=== PATIENT | female | born 1935 | race Caucasian/White ===

== ENCOUNTER → 2016-06-15 | Outpatient (CLI) | payer OTHER ==
--- NOTE | 2016-06-15 16:26 | DX ---
Chest, Two Views - June 15, 2016, at 1241 hours History: Cough, history of renal cell carcinoma. Comparison: Outside CT of August 2015. Findings: Cardiac silhouette is within normal range. No pneumonia, congestive heart failure, pleura l effusion, or pneumothorax. Large hiatal hernia. Atherosclerotic aorta. No definite pulmonary nodule . Impression: 1. Large hiatal hernia. 2. No pneumonia. 3. No definite pulmonary nodules. 4. Consider CT chest imaging if clinically indicated.
== END ==
LOC: BMCIMAGING 12:44
PROVIDERS: ATTEND Physician Assistant Medical
DX: K44.9 Diaphragmatic hernia without obstruction or gangrene (principal); R05 Cough; Z85.528 Personal history of other malignant neoplasm of kidney

== ENCOUNTER 2016-06-29 08:20 | Inpatient (IN) | payer OTHER ==
[2016-06-29] MEDS ORDERED: ACETAMINOPHEN 325 MG TAB PO PRN (10:55)
[2016-06-29] MEDS ORDERED: ZOLPIDEM TARTRATE 5 MG TAB PO PRN (10:55)
--- NOTE | 2016-06-29 10:59 | PDGENHP ---
History and Physical History and Physical: HISTORY AND PHYSICAL ADMISSION NOTE CC: Nausea, lightheadedness, unable to eat and drink HISTORY: this patient's history is difficult as her memory is not complete. She is referred here from Dr. Ayala's office because of difficulty with nausea, dizziness, and not eating well for at least several days with poor fluid intake as well. It is hard for me to clarify really what the timing is in terms of onset of this illness. Going back it sounds like she had an illness that was at least similar to bronchitis somewhere near [facility] and she was treated for that. The symptoms of chest cough and chest tightness have disappeared but she has persistent nasal sinus and ear congestion since then. She says that she has had intermittently some dizziness which she describes as a lightheadedness with nausea but no vertigo, brought on by various head movements. I cannot tell if this symptom has been present ever since but it sounds like it may possibly have been. The patient was then seen sometime around [place] time at the urgent care and reports to me that she was treated for both itching and 1 other symptom which she cannot recall. She says she was given 2 medicines 1 of which she says was causing her to have diarrhea. She does not really recall which medicines those were but states she is not having diarrhea at this time. Subsequently she was seen June 15 by what sounds like an Ear Nose Throat practitioner because of difficulty hearing in the right ear with history of tubes. She says she had her ears somehow irrigated and has been hearing better since then. She denies having had ear pain before or after that. She cannot recall whether there was any nausea or vertigo on June 15 and if it was present whether it got any better with her ear treatment. At this point she complains that for for 5 days he is really not been able to eat or drink well at all due to significant nausea. Again this nausea she says is also aggravated by head movement and position changes, and is associated with a lightheaded dizziness but not vertigo , ear pain, decreased hearing, headache, change in vision or double vision, stroke-like symptoms. She does feel dehydrated. She also does feel lightheaded enough with walking that she is concerned about falling but has not fallen and does not notice any incoordination per se ROS: COPD is chronic and stable and she has no more dyspnea than usual. Otherwise 10 system review is unrevealing at this point. 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 Last CT scan August of this year without evidence of cancer No heart disease FAMILY MEDICAL HISTORY: SOCIAL HISTORY: No tobacco or alcohol use MEDICATIONS: PHYSICAL EXAMINATION: Vital Signs: Normal without fever Examination: General: alert, oriented, memory is definitely impaired but otherwise has good mentation, relaxed Neurologic: normal speech/language, normal service support representative, no focal weakness Skin: warm, dry, pale in color, no rash or other concerning lesions HEENT: normal Neck: no mass or jvd, no carotid bruits and the carotid pulses are palpable Resps: relaxed Lungs: clear breath sounds Heart: regular, no murmur Abdomen: soft, nondistended, nontender, +BS, no mass Upper Extremities: normal Lower Extremities: no edema, warm; pulses are severely diminished and barely palpable at both feet No Bleeding or bruising IV site: looks normal LABORATORY DATA: In the outpatient setting on June 15 she had CBC and complete metabolic panel with TSH all of which were unremarkable RADIOLOGY STUDIES: Chest x-ray June 15, my personal review of image interpretation: Evidence of COPD, with no heart failure, effusions, masses, or pulmonary infiltrates In August 2015 she had a review of [address] scan abdomen is by our radiologist Dr. Cagle. His interpretation was that there was no evidence of current malignancy but that there was a hiatal hernia which was previously noted. ASSESSMENT: DIAGNOSES: # dehydration with orthostatic symptoms # nausea with anorexia, etiology uncertain # ongoing nasal sinus and ear congestion # history of transitional cell cancer of the right renal pelvis, currently appears in remission with follow up with Dr. Skinner I will need to get outside records to get more detail about what her symptoms truly were as she presented for her visits at [facility] and on June 15 , and what medications she was prescribed at those times. I suspect that she may have some middle ear related dizziness and nausea, however she truly does not have vertigo by history or examination. Certainly at this point she is dehydrated and this is aggravating her symptoms of dizzy and lightheadedness. The ongoing congestion of upper airways may be post viral or have other etiology. She does not have headache, of nystagmus or other abnormal vestibular ocular reflex's, nor cranial nerve findings to suggest a brain mass or other brain lesion focally. However her poor memory does make review of her symptoms difficult and I would keep an open mind with a broad differential diagnosis. It may be that we can eliminate a lot of her symptoms at this time with simple hydration but if this is not effective may need to do more detailed diagnostic evaluation. PLANS: -admission to hospital, inpatient as I do not think she will be safe on her feet to go home within 48 hours -Begin with IV hydration after checking orthostatic vital signs and recheck those after hydration along with review of her symptoms -Recheck CBC and basic metabolic panel at this time -consider other diagnostic measures including brain imaging as indicated as we go along I have reviewed the patient's past medical records as part of this assessment, including Outside imaging and laboratory data. I also reviewed her [facility] record to see if the [facility] records were available but the clinic notes are not available for review there I will have to get them from [facility].
[2016-06-29 11:54] LABS: % IMMATURE GRANULYOCYTES 0.3 % (0.0-1.1); ABSOLUTE IMMATURE GRANULOCYTES 0.02 10^3/uL (0.00-0.10); ADD DIFF? NO; ADD MORPH? NO; ADD SCAN? NO; ATYPICAL LYMPHOCYTE FLAG 0 (0-99); FRAGMENT RBC FLAG 0 (0-99); HEMATOCRIT 46.3 % (38.0-47.0); HEMOGLOBIN 16.3 g/dL (12.6-16.3); LEFT SHIFT FLG 0 (0-99); LIPEMIA HEMOLYSIS FLAG 90 (0-99); MEAN CELL HEMOGLOBIN 29.6 pg (27.9-34.1); MEAN CELL HEMOGLOBIN CONCENTR. 35.2 g/dL (32.4-36.7); MEAN PLATELET VOLUME 11.3 fL (8.7-11.7); PLATELET CLUMPS FLAG 0 (0-99); PLATELET COUNT 261 10^3/uL (150-400); RED BLOOD CELL COUNT 5.51 10^6/uL (4.18-5.33); RED CELL DISTRIBUTION WIDTH 13.2 % (11.5-15.2)
[2016-06-29] MEDS: NS 1,000 ML IV SCH ×2 (12:02→22:25)
[2016-06-29 12:05] LABS: ALANINE AMINOTRANSFERASE 39 IU/L (9-52); ALBUMIN 4.1 g/dL (3.5-5.0); ALKALINE PHOSPHATASE 39 IU/L (38-126); ANION GAP 11 mEq/L (8-16); ASPARTATE AMINOTRANSFERASE 30 IU/L (14-46); CALCIUM 9.2 mg/dL (8.5-10.4); CARBON DIOXIDE 22 mEq/l (22-31); CHLORIDE 98 mEq/L (97-110); CREATININE 0.8 mg/dL (0.6-1.0); GLOMERULAR FILTRATION RATE > 60; GLUCOSE 122 mg/dL (70-100); MAGNESIUM 2.1 mg/dL (1.6-2.3); SODIUM 131 mEq/L (134-144); TOTAL PROTEIN 7.2 g/dL (6.3-8.2)
[2016-06-29] MEDS: ONDANSETRON 4 MG/2 ML VIAL IVP PRN ×2 (12:12→16:32)
[2016-06-29] MEDS ORDERED: FAMOTIDINE 20 MG/NACL 50 ML IV ONE (16:44)
[2016-06-29] MEDS ORDERED: methylPREDNISolone SOD SUCC 125 MG/2 ML VIAL IVP ONE (16:44)
[2016-06-29 17:11] LABS: COLOR YELLOW; LEUKOCYTE ESTERASE,URINE TRACE (NEGATIVE); NITRITE,URINE NEGATIVE (NEGATIVE)
[2016-06-29 17:23] LABS: MUCUS TRACE /lpf (NONE-1+)
[2016-06-30 04:45] LABS: ANION GAP 10 mEq/L (8-16); CALCIUM 8.2 mg/dL (8.5-10.4); CARBON DIOXIDE 19 mEq/l (22-31); CHLORIDE 106 mEq/L (97-110); CREATININE 0.8 mg/dL (0.6-1.0); GLOMERULAR FILTRATION RATE > 60; GLUCOSE 157 mg/dL (70-100); POTASSIUM 4.7 mEq/L (3.5-5.2); SODIUM 135 mEq/L (134-144)
[2016-06-30] MEDS: ENOXAPARIN 40 MG/0.4 ML SYR SC SCH ×2 (08:39→09:23)
[2016-06-30] MEDS: ONDANSETRON 4 MG/2 ML VIAL IVP PRN ×2 (08:39→08:51)
[2016-06-30] MEDS: ATORVASTATIN CALCIUM 40 MG TAB PO SCH (08:39)
[2016-06-30] MEDS: Tiotropium Br/Olodaterol Hcl [Stiolto Respimat Inhal Spray] IH SCH (09:34)
[2016-06-30] MEDS ORDERED: methylPREDNISolone SOD SUCC 125 MG/2 ML VIAL IVP ONE (11:30)
[2016-06-30] MEDS ORDERED: FAMOTIDINE 20 MG/NACL 50 ML IV ONE (11:30)
[2016-06-30] MEDS: FLUTICASONE NASAL 120 SPRAYS/16 GM MDI EACHNARE SCH (12:56)
[2016-06-30] MEDS ORDERED: IOPAMIDOL (ISOVUE-300) 100 ML BTL IV ONE (13:13)
--- NOTE | 2016-06-30 14:33 | CT ---
CT Scan of the Abdomen and Pelvis (With Contrast) 1351 hours History: Abdominal pain and anorexia. Reflux symptoms. History of kidney mass Technique: Axial computed tomographic images of the abdomen and pelvis were obtained with the unevent ful intravenous administration of 75 mL Isovue-300 contrast. Oral contrast was also administered. Joan ges were reviewed in multiple planes. Dose reduction techniques were utilized. CT Abdomen and Pelvis Findings: Comparison to prior CT study of September 02, 2015. Bowel Loops: Large hiatal hernia is once again identified. There is normal contrast opacification of bowel loops. There is no evidence of dilatation or obstruction. Uncomplicated diverticula are once a gain seen associated with the sigmoid colon Lung bases: There are some fibrotic bands of subsegmental atelectasis at the left lung base as well a s a few bands of subsegmental atelectasis at the right lung base posteriorly. Liver: There is a stable 14 x 8 mm cyst right lobe liver near the dome posterolaterally as well as a few scattered subcentimeter cysts in the right lobe liver stable in appearance. Spleen: Normal. Gallbladder and Bile Ducts: Normal. Pancreas: Normal. Adrenals: Normal. Kidneys: No obstruction or solid masses. No evidence of renal calculus or ureteral calculus Abdominal Aorta: No aneurysm. Moderate atherosclerotic calcification is noted of the abdominal aorta and pelvic branches. Pelvic structures: The patient has had a previous hysterectomy. There is a septated cyst associated w ith the left ovary similar to the prior study measuring 2.8 x 1.6 cm on series 4 image 177. This is a slightly different orientation on today's study. No additional adnexal mass is seen Bladder: Normal. Appendix: Nonvisualized. No bowel obstruction, ascites, or significant retroperitoneal lymphadenopathy. Skeletal system: Vertebral body heights are well-maintained. There are no significant lytic or scler otic osseous lesions. Marked degenerative disk disease is noted at L3-L4 with vacuum phenomena and en dplate sclerosis more prominent toward the right with associated mild levoscoliosis. There is mild to moderate disk bulge along with facet hypertrophy and ligamentum flavum hypertrophy contributes to mo derate spinal stenosis. Impression: 1. Large hiatal hernia. 2. Uncomplicated diverticulosis of the sigmoid colon. 3. Stable cysts within the liver. 4. Septated cyst suspected along the left pelvic sidewall associated with the left ovary similar to t he prior study. If indicated, consider pelvic ultrasound follow-up in 1 year has clinically directed.
--- NOTE | 2016-06-30 15:44 | HOSPPROG ---
Hospitalist Progress Note Assessment/Plan: DIAGNOSIS: # dehydration with orthostatic symptoms # nausea with anorexia, etiology uncertain # ongoing nasal sinus and ear congestion # gait instability # hx of CAD, COPD, Ao Stenosis, colon polyps # history of transitional cell cancer of the right renal pelvis, currently appears in remission with follow up with Dr. Skinner Overall she seems to be improving in that she is eating better and is less orthostatic but still is having symptoms. CT scan was unrevealing and laboratory workup so far fairly unrevealing. It is possible that this is a combination of dehydration along with either a viral illness or similar cause. However if she does not continue to resolve these symptoms and recovered back to her baseline we may need to consider upper endoscopy to look for other possible etiologies. PLANS: -continue IV hydration -Continue diet as tolerated -Continue physical occupational therapy -trial of decongestant to see if this helps her symptoms of congestion out, but will need to watch blood pressures very closely -Continue SUBJECTIVE: She is feeling better overall. She is eating significantly better, not quite at her usual intake. There is still some mild intermittent nausea is well controlled by Zofran so far. She is less orthostatic symptomatically New the the last overall she is well she she is for some improvement in her chest and her abdomen does all the significant side so hard symptoms because yesterday the clock so I did get the question her were steroids significant IV fair but it seems like she feels somewhat better go to the so it seems like we continued the 1 question the JENNIFER from our pharmacist the could not find any information this debility next been, the how long last and they were least from here from [place] in the pharmacist were concerned that okay here in the hospital we can make that day sent back to at how she makes out on the I am health agency radiate ago with a different I think we certainly could not be in no there is no abnormality vital signs are vital organ function putting her on any kind and it seems so far like she is tolerating well with reasonably good see so I think continues to do well she should be able but I wanted I had numerous recalling what it was in part due to headache again go over your thoughts in January from pharmacist pharmacist see progression to OBJECTIVE Vitals reviewed: stable without fever somewhat less orthostatic by numbers of the Exam: alert oriented skin warm dry color ok resps not labored lungs clear BSs heart regular abd soft nondistended nontender, bowel sounds present limbs warm, no edema iv site ok CT scan of abdomen pelvis with contrast, my review of images and interpretation : Hiatal hernia is present which is a known diagnosis. She does have stable hepatic and pelvic cysts but no other specific abnormalities that I can see. The same cysts are noted by the radiologist. Follow up the imaging is again it suggested by the radiologist. Laboratory data: CBC is unremarkable Chemistry showing electrolytes okay, renal function good, liver enzymes and bilirubin good, TSH normal. The glucoses are slightly elevated Objective: Vital Signs Temp Pulse Resp BP Pulse Ox 36.6 C 65 18 131/69 H 93 06/30/16 08:30 06/30/16 10:08 06/30/16 08:30 06/30/16 10:08 06/30/16 08:30 Laboratory Results 06/29/16 11:40 06/30/16 03:53 06/29/16 06/30/16 07/01/16 06:59 06:59 06:59 Intake Total 3576 Output Total 1450 1550 Balance 2126 -1550 ICD10 Worksheet Patient Problems: Problems Problem Status Diagnosed Abdominal pain in female Acute - ICD10 Problem Qualifiers (1) Abdominal pain in female
[2016-06-30] MEDS: NS 1,000 ML IV SCH ×2 (19:34→23:27)
[2016-07-01] MEDS: ENOXAPARIN 40 MG/0.4 ML SYR SC SCH ×2 (07:30→07:34)
[2016-07-01] MEDS: ONDANSETRON 4 MG/2 ML VIAL IVP PRN ×3 (07:30→19:40)
[2016-07-01] MEDS: ATORVASTATIN CALCIUM 40 MG TAB PO SCH (07:30)
[2016-07-01] MEDS: FLUTICASONE NASAL 120 SPRAYS/16 GM MDI EACHNARE SCH (07:31)
[2016-07-01] MEDS: Tiotropium Br/Olodaterol Hcl [Stiolto Respimat Inhal Spray] IH SCH (07:31)
--- NOTE | 2016-07-01 15:19 | HOSPPROG ---
Hospitalist Progress Note Assessment/Plan: 72 year female sent from her primary care physician's office, Nanda Mccartney, secondary to inability to eat. This is my 1st encounter with the patient, chart reviewed. Patient discussed with Dr. Minor Reyes. # dehydration with orthostatic symptoms Continue IV supportive care Patient dehydrated upon admission # nausea with anorexia, etiology uncertain CT scan of the abdomen shows large hiatal hernia Consider surgical intervention Likely causes of patient's symptoms Patient does not want surgical consultation at this time readdress in the morning # ongoing nasal sinus and ear congestion Appears stable Continue supportive care No acute infectious process identified # gait instability Continue PT OT # hx of CAD, COPD, Ao Stenosis, colon polyps # history of transitional cell cancer of the right renal pelvis, currently appears in remission with follow up with Dr. Skinner Overall she seems to be improving. She is eating better and is less orthostatic but still is having symptoms. CT scan was unrevealing and laboratory workup so far fairly unrevealing. It is possible that this is a combination of dehydration along with either a viral illness or similar cause. However if she does not continue to resolve these symptoms and recovered back to her baseline we may need to consider upper endoscopy to look for other possible etiologies. PLANS: -continue IV hydration -Continue diet as tolerated -Continue physical occupational therapy -trial of decongestant to see if this helps her symptoms of congestion out, but will need to watch blood pressures very closely Subjective: Feeling better today. Still having some difficulty eating. Still having mild abdominal discomfort. Objective: Vital Signs Temp Pulse Resp BP Pulse Ox 36.6 C 63 20 132/66 H 95 07/01/16 07:24 07/01/16 09:06 07/01/16 07:24 07/01/16 09:06 07/01/16 07:24 Laboratory Results 06/29/16 11:40 06/30/16 03:53 06/30/16 07/01/16 07/02/16 05:59 05:59 05:59 Intake Total 1534 2042 Output Total 1450 2200 Balance 84 -158 - Physical Exam Constitutional: no apparent distress, appears nourished, not in pain Eyes: PERRL, anicteric sclera, EOMI Ears, Nose, Mouth, Throat: moist mucous membranes, hearing normal, ears appear normal Cardiovascular: regular rate and rhythym, No JVD, No edema Respiratory: no respiratory distress, no rales or rhonchi, reduced air movement Gastrointestinal: normoactive bowel sounds, No tenderness, No ascites Skin: warm, normal color, No erythema Musculoskeletal: no joint effusions, abnormal gait, generalized weakness Psychiatric: not anxious, not encephalopathic, poor insight, poor judgement, poor memory ICD10 Worksheet Patient Problems: Problems Problem Status Diagnosed Abdominal pain in female Acute
[2016-07-02] MEDS: ONDANSETRON 4 MG/2 ML VIAL IVP PRN ×4 (00:10→17:35)
[2016-07-02] MEDS: NS 1,000 ML IV SCH (06:11)
[2016-07-02] MEDS: Tiotropium Br/Olodaterol Hcl [Stiolto Respimat Inhal Spray] IH SCH (08:17)
[2016-07-02] MEDS: ENOXAPARIN 40 MG/0.4 ML SYR SC SCH (08:31)
[2016-07-02] MEDS: ATORVASTATIN CALCIUM 40 MG TAB PO SCH (08:31)
--- NOTE | 2016-07-02 09:08 | HOSPPROG ---
Hospitalist Progress Note Assessment/Plan: 72 year female sent from her primary care physician's office, Nanda Mccartney, secondary to inability to eat. This is my 1st encounter with the patient, chart reviewed. # dehydration intially, had orthostasis vital signs stable # nausea with associated anorexia * she has a large hiatal hernia with symptoms of GERD * place her on a PPI twice daily and see how she does * could consider a barium swallow or get a GI consult. Patient said she would be willing to do an upper endoscopy if symptoms are not improved by tomorrow # ear congestion * patient recently saw her physician/courtesy clerk for this * she has a tube in the right ear that was taken out cleaned and replaced * she does not have her hearing aids available suspect this is why she may feel she has congestion in her year # gait instability * PT and OT are recommending home care # history of coronary artery disease * also has aortic stenosis * no complaints of chest pain # history of transitional cell cancer of the right renal pelvis CT scan shows this will have her follow up with Dr. Skinner in the outpatient setting # plan. Will do a trial of a PPI twice daily if she is not much improved we will ask GI to further evaluate her. Subjective: Silvia was able to eat breakfast but has persistent nausea requiring Zofran Objective: Vital Signs Temp Pulse Resp BP Pulse Ox 36.5 C 70 18 137/78 H 93 07/02/16 07:28 07/02/16 07:28 07/02/16 07:28 07/02/16 07:28 07/02/16 07:28 Laboratory Results 06/29/16 11:40 06/30/16 03:53 07/01/16 07/02/16 07/03/16 05:59 05:59 05:59 Intake Total 2 300 Output Total 2200 Balance -158 300 - Physical Exam Constitutional: no apparent distress, appears nourished, not in pain Eyes: PERRL Ears, Nose, Mouth, Throat: hearing normal Cardiovascular: regular rate and rhythym, systolic murmur Respiratory: no respiratory distress Gastrointestinal: normoactive bowel sounds, soft, non-tender abdomen Skin: warm Musculoskeletal: full muscle strength Neurologic: AAOx3 Psychiatric: interacting appropriately, not anxious ICD10 Worksheet Patient Problems: Problems Problem Status Diagnosed Abdominal pain in female Acute
[2016-07-02] MEDS: FLUTICASONE NASAL 120 SPRAYS/16 GM MDI EACHNARE SCH (10:03)
[2016-07-02] MEDS: PANTOPRAZOLE SODIUM 40 MG TAB PO SCH ×2 (11:01→20:41)
[2016-07-03] MEDS: ONDANSETRON 4 MG/2 ML VIAL IVP PRN ×5 (00:25→22:54)
[2016-07-03] MEDS: ATORVASTATIN CALCIUM 40 MG TAB PO SCH (08:08)
[2016-07-03] MEDS: PANTOPRAZOLE SODIUM 40 MG TAB PO SCH ×2 (08:08→20:19)
[2016-07-03] MEDS: ENOXAPARIN 40 MG/0.4 ML SYR SC SCH (08:09)
[2016-07-03] MEDS: FLUTICASONE NASAL 120 SPRAYS/16 GM MDI EACHNARE SCH (08:10)
[2016-07-03] MEDS: Tiotropium Br/Olodaterol Hcl [Stiolto Respimat Inhal Spray] IH SCH (09:10)
--- NOTE | 2016-07-03 09:34 | HOSPPROG ---
Hospitalist Progress Note Assessment/Plan: 72 year female sent from her primary care physician's office, Nanda Mccartney, secondary to inability to eat. # dehydration intially, had orthostasis vital signs stable # nausea with associated anorexia * she has a large hiatal hernia with symptoms of GERD * place her on a PPI twice daily * will get a GI consult. Patient said she would be willing to do an EGD/ made her NPO * Dr Yoon to see later today * blood test notes she has H pylori/ ? if she may have an ulcer/ will need treatment (concerned she may not be able to tolerate abx due to persistent nausea) # ear congestion * patient recently saw her physician/ferry pilot for this * she has a tube in the right ear that was taken out cleaned and replaced * she does not have her hearing aids available suspect this is why she may feel she has congestion in her year # gait instability * PT and OT are seeing * can go to [facility] # history of coronary artery disease * also has aortic stenosis * no complaints of chest pain # history of transitional cell cancer of the right renal pelvis CT scan shows this will have her follow up with Dr. Skinner in the outpatient setting # plan. npo, ask GI to see/ her nausea is new and not resolving, difficulty w eating Subjective: Silvia is feeling poorly this morning. Continues to have ongoing nausea. Objective: Vital Signs Temp Pulse Resp BP Pulse Ox 36.9 C 65 15 157/81 H 95 07/03/16 07:50 07/03/16 07:50 07/03/16 07:50 07/03/16 07:50 07/03/16 07:50 Laboratory Results 06/29/16 11:40 06/30/16 03:53 07/02/16 07/03/16 07/04/16 05:59 05:59 05:59 Intake Total 300 500 Output Total 2200 Balance 300 -1700 - Physical Exam Constitutional: uncomfortable Eyes: PERRL Ears, Nose, Mouth, Throat: hearing normal Cardiovascular: regular rate and rhythym Respiratory: no respiratory distress Gastrointestinal: normoactive bowel sounds, soft, non-tender abdomen Skin: warm Musculoskeletal: no muscle tenderness, generalized weakness Neurologic: AAOx3 Psychiatric: interacting appropriately, not anxious ICD10 Worksheet Patient Problems: Problems Problem Status Diagnosed Abdominal pain in female Acute
[2016-07-03] MEDS: NS 1,000 ML IV SCH (13:57)
[2016-07-03] MEDS ORDERED: MIDAZOLAM 2 MG/2 ML VIAL ONE (17:33)
[2016-07-03] MEDS ORDERED: PROPOFOL/EMULSION 500 MG/50 ML BOTTLE IV ONE (17:41)
[2016-07-03] MEDS ORDERED: LIDOCAINE 2% 5 ML SDV ONE (17:42)
[2016-07-03] MEDS ORDERED: fentaNYL 100 MCG/2 ML INJ ONE (17:45)
--- NOTE | 2016-07-03 17:57 | SOAPPROG ---
SOAP Progress Note Assessment/Plan: Assessment:EGD requested for persistent nausea reveals 10 cm hiatal hernia, no PUD or obstruction. CLOtest taken. Plan:Recommend continue on PPIs and observe for improvement. 07/03/16 17:56 Objective: Vital Signs Temp Pulse Resp BP Pulse Ox 36.9 C 70 14 136/68 H 93 07/03/16 15:48 07/03/16 15:48 07/03/16 15:48 07/03/16 15:48 07/03/16 15:48 Laboratory Results 06/29/16 11:40 06/30/16 03:53 07/02/16 07/03/16 07/04/16 05:59 05:59 05:59 Intake Total 300 500 400 Output Total 2200 700 Balance 300 -1700 -300 ICD10 Worksheet Patient Problems: Problems Problem Status Diagnosed Abdominal pain in female Acute
[2016-07-04] MEDS ORDERED: PROMETHAZINE HCL 25 MG/ML INJ IVP PRN (00:36)
--- NOTE | 2016-07-04 01:16 | GPN ---
[f rep st] PROCEDURE NOTE PROCEDURE PERFORMED: Gastroscopy, biopsies. INDICATIONS: The patient is a 80-year-old female who was admitted with several weeks of nausea. No abdominal pain. She has not improved with conservative care in the hospital, and endoscopy is being performed to evaluate. PROCEDURE: After proper consent was obtained, patient placed in the left lateral decubitus position, received IV general anesthesia due to ASA class of 2. Video gastroscope was introduced through the mouth, down the esophagus, into the stomach, past the py lorus, into the duodenal. FINDINGS: 1. Esophagus was normal was Z-line at 32 cm. 2. A 10 cm hiatal hernia sac was identified. There are no ulcerations or other injuries within it. 3. The stomach is otherwise normal with no ulcer seen. 4. Duodenal was normal. There was no evidence of obstruction. 5. Biopsies were taken to rule out H pylori. At this point, instrument was removed. Patient tolerated procedure well. She was taken to the [facility] room in stable condition. RECOMMENDATIONS: Patient should continue on proton pump inhibitor started yesterday and observe for any improvement. It is possible the hiatal hernia sac is somehow responsible for this nausea althoug h not clear how old the hernia is. /[id number]/MODL
[2016-07-04] MEDS ORDERED: diphenhydrAMINE 25 MG CAP PO PRN (03:05)
[2016-07-04] MEDS: NS 1,000 ML IV SCH (04:47)
[2016-07-04 06:11] LABS: ANION GAP 7 mEq/L (8-16); CARBON DIOXIDE 22 mEq/l (22-31); CHLORIDE 107 mEq/L (97-110); CREATININE 0.9 mg/dL (0.6-1.0); GLOMERULAR FILTRATION RATE > 60; GLUCOSE 91 mg/dL (70-100); POTASSIUM 3.6 mEq/L (3.5-5.2); SODIUM 136 mEq/L (134-144)
[2016-07-04 07:49] VITALS: PULSE 67; RESP 18; TEMP 98.2
[2016-07-04] MEDS: ATORVASTATIN CALCIUM 40 MG TAB PO SCH (08:28)
[2016-07-04] MEDS: PANTOPRAZOLE SODIUM 40 MG TAB PO SCH (08:28)
[2016-07-04] MEDS: FLUTICASONE NASAL 120 SPRAYS/16 GM MDI EACHNARE SCH (08:29)
[2016-07-04] MEDS: ENOXAPARIN 40 MG/0.4 ML SYR SC SCH (09:07)
[2016-07-04] MEDS: Tiotropium Br/Olodaterol Hcl [Stiolto Respimat Inhal Spray] IH SCH (09:16)
[2016-07-04] MEDS: ONDANSETRON 4 MG/2 ML VIAL IVP PRN (09:48)
[2016-07-04 12:26] VITALS: BP 123/67
--- NOTE | 2016-07-04 13:29 | HOSPPROG ---
Hospitalist Progress Note Assessment/Plan: 72 year female sent from her primary care physician's office, Nanda Mccartney, secondary to inability to eat. # dehydration intially, had orthostasis vital signs stable # nausea with associated anorexia * she has a large hiatal hernia with symptoms of GERD * place her on a PPI twice daily * she is eating yogurt and applesauce when I evaluated her today # hiatal hernia * could be causing the symptoms above * had a blood test positive for H pylori/ she has a pending biopsy to see if this is indeed confirmed * if positive she will need treatment. Reviewed this with Dr. Yoon. 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 Skinner in the outpatient setting # plan. [facility] today for rehab Subjective: Silvia is feeling weak. Is able to eat small amounts of food Objective: Vital Signs Temp Pulse Resp BP Pulse Ox 36.8 C 67 18 123/67 H 95 07/04/16 07:48 07/04/16 07:48 07/04/16 07:48 07/04/16 12:24 07/04/16 07:48 Laboratory Results 06/29/16 11:40 07/04/16 05:08 07/03/16 07/04/16 07/05/16 05:59 05:59 05:59 Intake Total 500 1550 Output Total 2200 3300 700 Balance -1700 -1750 -700 - Physical Exam Constitutional: no apparent distress, appears nourished Eyes: PERRL Ears, Nose, Mouth, Throat: moist mucous membranes Cardiovascular: regular rate and rhythym Respiratory: no respiratory distress Skin: warm Musculoskeletal: generalized weakness Neurologic: AAOx3 Psychiatric: interacting appropriately ICD10 Worksheet Patient Problems: Problems Problem Status Diagnosed Abdominal pain in female Acute
--- NOTE | 2016-07-04 13:33 | PDIAF ---
- Diagnosis Diagnosis: nausea and vomiting/ hiatal hernia Code Status: Do Not Resuscitate - Medication Management Discharge Medications: Medications to Continue on Transfer Atorvastatin Calcium [Lipitor 40 mg (*)] 40 mg PO DAILY 06/29/16 [Last Taken ] Fluticasone Nasal [Flonase Nasal [place]] 2 sprays EACHNARE DAILY 06/29/16 [Last Taken 06/29/16] Tiotropium Br/Olodaterol HCl [Stiolto Respimat Inhal [place]elia] 2 puffs IH DAILY [Last Taken 06/29/16] Acetaminophen [Tylenol 325mg (*)] 650 mg PO Q4HRS PRN #0 tab 07/04/16 [Last Taken Unknown] Ondansetron Odt [Zofran Odt 4 mg (*)] 4 mg PO Q4 #20 tab 07/04/16 [Last Taken Unknown] Pantoprazole Sodium [Protonix 40mg (*)] 40 mg PO BID #0 tab 07/04/16 [Last Taken Unknown] Discharge Medications: Refer to the Discharge Home Medication list for PRN reason. - Orders Services needed: Physical Therapy, Occupational Therapy Diet Recommendation: no restrictions on diet Diet Texture: Regular Texture Diet Additional: all meals up in chair. Sit up for 30 minutes after meals. Patient needs to follow up with Dr Casey Yoon in regards to biopsies from EGD/ concern for H Pylori and she will need treatment. See Dr Mccartney in 2 weeks. - Follow Up Care Current Providers and Referrals: Nanda Mccartney MD [Primary Care Provider] - Jair Yoon MD [Medical Doctor] -
[2016-07-04 14:56] VITALS: O2SAT 93
--- NOTE | 2016-07-04 20:09 | GDS ---
[f rep st] DISCHARGE SUMMARY DISCHARGE DIAGNOSES: 1. Dehydration. 2. Nausea with associated anorexia. 3. Hiatal hernia. 4. Ear congestion. 5. Gait instability. 6. History of coronary artery disease. 7. History of transitional cell cancer of the right renal pelvis. CONSULTATIONS: Dr. Jair Yoon. BRIEF HISTORY: The patient is a very nice 80-year-old woman who was referred from Dr. Mccartney's office, because she was having nausea, dizziness and not eating for several days. It was unclear the etiology of her nausea, but it persisted throughout her stay. Her CT scan noted that a hiatal hernia. She was seen and evaluated by Dr. Jair Yoon, and, on 07/03/2016, she had a gastroscopy with biopsies. It noted that her esophagus was normal. She does have a 10 cm hiatal hernia sac. No ulcerations or injuries were noted. Her duodenal was normal. Biopsies were taken to rule out H pylori. Today, she still had episodes of nausea but was able to eat. She will go to [facility] and further follow up with Dr. Mccartney in the outpatient setting. HOSPITAL COURSE PER PROBLEM: 1. Dehydration. Initially, she had some orthostasis. This resolved with hydration. 2. Nausea with associated anorexia. She has a large hiatal hernia with symptoms of GERD. She has been started on a PPI twice daily. She was able to the eat today. 3. Hiatal hernia. This could be causing her symptoms. In addition, she had a blood test that was positive for H pylori. She is being deferred treatment at this time, because of the ongoing nausea. Doubtful she can take the medications. She will follow up with Dr. Yoon in the outpatient setting. He did a biopsy to evaluate for H pylori. 4. Ear congestion. She recently saw an client technical specialist for this. She had a tube that was taken out and cleaned. 5. Gait instability. She worked with PT and OT during her stay. She will go to [facility] for rehabilitation. 6. History of coronary artery disease. She has aortic stenosis. No complaints of chest pain. 7. History of transitional cell cancer of the right renal pelvis. Further follow up with Dr. Skinner in the outpatient setting. PENDING LABS: Multiple labs are pending from gastroscopy. CONDITION AT DISCHARGE: Stable. Blood pressure is 122/67, O2 saturations, on room air, are 93%. Heart rate is 67, respiratory rate is 18, temperature is 36.8 Celsius. MEDICATIONS AT DISCHARGE: Please see the EMR. DISCHARGE INSTRUCTIONS: 1. To follow up with Dr. Yoon in the next week to get results of her biopsies. 2. Follow up with Dr. Mccartney. I have also let Dr. Mccartney a message, in regard to the patient's admission. 3. If she develops fever, chills, chest pain, shortness of breath or is unable to take in adequate intake, to return to the emergency room. Greater than 30 minutes discharging and coordinating care. /[id number]/MODL MTDD
== END 2016-07-04 15:47 | DRG 392 ==
LOC: F1N 09:12 → F3E 09:12 → OBSVTOIN 10:55 → F3E 06-30 22:45
PROVIDERS: ADMIT Internal Medicine; ATTEND Internal Medicine
PROC: 0DB68ZX Excision of Stomach, Via Natural or Artificial Opening Endoscopic, Diagnostic (ICD-10-PCS; principal; 2016-07-03 17:15)
DX: K44.9 Diaphragmatic hernia without obstruction or gangrene (principal); K21.9 Gastro-esophageal reflux disease without esophagitis; E86.0 Dehydration; R11.0 Nausea; R63.0 Anorexia; J44.9 Chronic obstructive pulmonary disease, unspecified; R26.9 Unspecified abnormalities of gait and mobility; I25.10 Atherosclerotic heart disease of native coronary artery without angina pectoris; J34.89 Other specified disorders of nose and nasal sinuses; Z66 Do not resuscitate
CPT/HCPCS: 97110-GP; 97116-GP; 97161-GP; 97165-GO; 97535-GO; G8978-GP-CJ; G8979-GP-CI; G8987-GO-CI; G8988-GO-CI; J1200; J1650; J2250; J2405; J2550; J2704; J3010; Q9967

== ENCOUNTER → 2016-07-21 | Outpatient (CLI) | payer OTHER | LOC: FIMAGING 09:41 | PROVIDERS: ATTEND Surgery | DX: K22.8 Other specified diseases of esophagus (principal); R19.2 Visible peristalsis; K21.9 Gastro-esophageal reflux disease without esophagitis; K44.9 Diaphragmatic hernia without obstruction or gangrene ==

== ENCOUNTER 2016-08-04 05:46 | Inpatient (IN) | payer OTHER ==
[2016-08-04] MEDS ORDERED: LR 1,000 ML IV ONE (06:11)
[2016-08-04] MEDS ORDERED: LIDOCAINE 1% 5 ML SDV ID PRN (06:11)
--- NOTE | 2016-08-04 06:44 | CPEKG ---
Heart Rate: 97 RR Interval: 619 P-R Interval: 160 QRSD Interval: 82 QT Interval: 348 QTC Interval: 442 P [place]: 32 QRS [place]: 0 T Wave [place]: 38 EKG Severity - BORDERLINE ECG - EKG Impression: SINUS RHYTHM EKG Impression: PROBABLE LEFT ATRIAL ABNORMALITY Electronically Signed By: Lance Sheppard 06-Aug-2016 09:05:50
[2016-08-04] MEDS ORDERED: ONDANSETRON 4 MG/2 ML VIAL ONE (07:09)
[2016-08-04] MEDS ORDERED: SUGAMMADEX SODIUM 200 MG/2 ML VIAL IVP ONE (07:09)
[2016-08-04] MEDS ORDERED: ROCURONIUM 50 MG/5 ML VIAL ONE (07:09)
[2016-08-04] MEDS ORDERED: HYDROmorphONE/DILAUDID 2 MG/ML INJ ONE (07:09)
[2016-08-04] MEDS ORDERED: DEXAMETHASONE 4 MG/ML VIAL ONE (07:09)
[2016-08-04] MEDS ORDERED: LIDOCAINE 2% 100 MG/5 ML SYR IVP ONE (07:09)
[2016-08-04] MEDS ORDERED: fentaNYL 100 MCG/2 ML INJ ONE ×2 (07:10→11:29)
[2016-08-04] MEDS ORDERED: PROPOFOL 200 MG/20 ML VIAL ONE (07:10)
[2016-08-04] MEDS ORDERED: BUPIVACAINE 0.5% 30 ML SDV ONE (07:11)
[2016-08-04] MEDS ORDERED: PHENYLEPHRINE HCL 100 MCG/ML SYR ONE (07:30)
[2016-08-04] MEDS ORDERED: cefOXitin SODIUM 1 GM in D5W 50 ML IV ONE (07:30)
--- NOTE | 2016-08-04 09:37 | POSTOPPROG ---
Post Op Note Date of Operation: 08/04/16 Surgeon: Tapan Cheng Renal Dietitian: Canelo Morrison Anesthesiologist: Taran Anesthesia: GET(General Endotracheal) Pre-op Diagnosis: PEH Post-op Diagnosis: same Procedure: lap PEH repair, fundoplication Inf/Abcess present in the surg proc area at time of surgery?: No EBL: Minimal
--- NOTE | 2016-08-04 10:17 | GOP ---
DATE OF OPERATION: 08/04/2016 SURGEON: Cr Cheng MD LIBERAL ARTS DEAN: Dr. Morrison, whose presence was requested by me and medically necessary for the safe a nd timely completion of this case. ANESTHESIA: General endotracheal anesthesia. ANESTHESIOLOGIST: Neno Chirinos MD PREOPERATIVE DIAGNOSIS: Paraesophageal hernia. POSTOPERATIVE DIAGNOSIS: Paraesophageal hernia. PROCEDURE PERFORMED: 1. Robotic paraesophageal hernia repair. 2. Fundoplication. FINDINGS: The patient had a large hiatal defect. A posterior fundoplication was performed. ESTIMATED BLOOD LOSS: 30 cc. INDICATIONS: This is a 80-year-old female with a history of nausea, vomiting, abdominal pain. The patient was found to have a large hiatal hernia with a paraesophageal hernia and tortuous esophagus. Risks and benefits of the procedure were discussed with the patient and her family. Their questio ns were answered and they wished to proceed. DESCRIPTION OF PROCEDURE: The patient was in the supine position initially. After the induction of adequate general endotracheal anesthesia, the patient was moved to the modified lithotomy position. The patient was then prepped and draped in the standard surgical fashion. Marcaine 0.5% was injec bruna throughout the supraumbilical area for local anesthesia. An 8-mm incision was made and the abdominal wall was elevated. A Veress needle was inserted and aft er noting proper pressures, the abdomen was insufflated with carbon dioxide. An 8-mm trocar was giselle ana paula and a camera followed. There was no apparent damage from trocar placement. Four more ports wer e placed, three 8-mm ports in the upper abdomen and one 5-mm port in the right mid abdomen. These w ere all placed under direct vision after injecting 0.5% Marcaine for local anesthesia. The robot was then docked without difficulty. Robotic instruments were then used to perform the diss ection. The Harmonic scalpel was used to take down the gastrohepatic ligament. Dissection was then carried over the esophagus exposing the right fili. The dissection proceeded laterally and the sup erior portion of the esophagus and the left fili were exposed. The vagus nerves were seen and prese rved throughout the entire case. Next, the posterior window was opened using blunt dissection and t he Harmonic scalpel. Once this window was achieved, attention was turned to the short gastrics. A significant portion of the short gastric vessels was taken down using a Harmonic scalpel. This fr eed up the fundus in its entirety. The mediastinal dissection was then performed. This was careful ly performed using blunt dissection and minimal energy component. Once the entire visible portion o f the esophagus was freed and the gastroesophageal junction returned to the abdomen, the repair of t he hiatal hernia ensued. Interrupted sutures of 3-0 silk were used to approximate the hiatus director of corporate strategy iorly. Enough room was seen for the esophagus and an instrument tip. The fundus was then brought p osteriorly to the esophagus and the wrap performed. Initial suture took bites of stomach, anterior esophagus, and stomach. Care was taken again to avoid the vagus nerve. Two more sutures of 3-0 celia k were used to create the wrap inferiorly. This was a loose floppy wrap. No other lesions were branden ntified at this time. Good hemostasis was noted. The robot was then undocked. Trocars were removed under direct vision. The pneumoperitoneum was al lowed to escape. The wounds were thoroughly irrigated. The skin at all sites was closed using 4-0 Monocryl in a subcuticular suture. Wounds were sterilely dressed and the patient was returned to th e supine position and extubated. The patient was then taken to the PACU in stable condition. ADDENDUM: A posterior wrap was performed. Initial sutures anchored the stomach to the diaphragm. Further sutures of 2-0 silk were used to fix the stomach to the esophagus in a partial posterior wra p. COMPLICATIONS: None. DRAINS: None. /[id number]/MODL
[2016-08-04] MEDS: LR 1,000 ML IV SCH ×2 (11:40→20:45)
[2016-08-05] MEDS: HYDROmorphONE/DILAUDID 1 MG/ML SYR IVP PRN ×3 (03:21→23:48)
[2016-08-05] MEDS: LR 1,000 ML IV SCH ×2 (06:05→15:18)
[2016-08-05] MEDS: Tiotropium Br/Olodaterol Hcl [Stiolto Respimat Inhal Spray] 2 PUFF IH SCH ×2 (08:17→10:32)
[2016-08-05] MEDS ORDERED: NON-FORMULARY NEW DRUG (Tiotropium Br/Olodaterol Hcl [Stiolto Respimat Inhal Spray] 2 PUFF IH SCH (09:00)
--- NOTE | 2016-08-05 10:02 | SOAPPROG ---
SOAP Progress Note Assessment/Plan: Assessment: s/p lap PEHR, improving. Start clears slowly. IS/ambulate, PT/OT. Plan: 08/05/16 10:00 Subjective: Patient denies complaints, no N/V. No ambulation. Objective: Vital Signs Temp Pulse Resp BP Pulse Ox 36.6 C 106 H 20 135/84 H 94 08/05/16 08:00 08/05/16 08:00 08/05/16 08:00 08/05/16 08:00 08/05/16 08:00 08/04/16 08/05/16 08/06/16 05:59 05:59 05:59 Intake Total 2782 Output Total 1660 Balance 1122 Alert, NAD Tachy but reg Abd soft, NTTP Inc C/D/I ICD10 Worksheet Patient Problems: Problems Problem Status Onset Abdominal pain in female Acute
[2016-08-05] MEDS: FLUTICASONE NASAL 120 SPRAYS/16 GM MDI EACHNARE SCH (10:07)
[2016-08-06] MEDS: LR 1,000 ML IV SCH ×3 (01:15→21:50)
[2016-08-06] MEDS: HYDROmorphONE/DILAUDID 1 MG/ML SYR IVP PRN ×3 (04:08→09:44)
--- NOTE | 2016-08-06 09:26 | SOAPPROG ---
SOAP Progress Note Assessment/Plan: Assessment: s/p lap PEHR, stable. CXR atelectasis, but pt with persistent tachycardia. Check D-dimer. Cont clears. Plan: 08/05/16 10:00 08/06/16 09:25 Subjective: Patient states SOB improved. Still with some dizziness. Kal po, no N/V. Objective: Vital Signs Temp Pulse Resp BP Pulse Ox 36.6 C 93 16 128/84 H 97 08/06/16 07:30 08/06/16 07:30 08/06/16 07:30 08/06/16 07:30 08/06/16 07:30 08/05/16 08/06/16 08/07/16 05:59 05:59 05:59 Intake Total 2782 1200 Output Total 1660 1100 Balance 1122 100 Alert, NAD RRR Abd soft, NTTP Inc C/D/I ICD10 Worksheet Patient Problems: Problems Problem Status Onset Abdominal pain in female Acute
[2016-08-06] MEDS: FLUTICASONE NASAL 120 SPRAYS/16 GM MDI EACHNARE SCH (09:46)
[2016-08-06] MEDS: ENOXAPARIN 40 MG/0.4 ML SYR SC SCH (09:49)
[2016-08-06 09:52] LABS: HEMATOCRIT 41.8 % (38.0-47.0); HEMOGLOBIN 14.3 g/dL (12.6-16.3); MEAN CELL HEMOGLOBIN 30.4 pg (27.9-34.1); MEAN CELL HEMOGLOBIN CONCENTR. 34.2 g/dL (32.4-36.7); MEAN CELL VOLUME 88.9 fL (81.5-99.8); RED BLOOD CELL COUNT 4.7 10^6/uL (4.18-5.33); RED CELL DISTRIBUTION WIDTH 14.3 % (11.5-15.2)
[2016-08-06 10:12] LABS: ALANINE AMINOTRANSFERASE 64 IU/L (9-52); ALBUMIN 3.5 g/dL (3.5-5.0); ALKALINE PHOSPHATASE 44 IU/L (38-126); ANION GAP 10 mEq/L (8-16); ASPARTATE AMINOTRANSFERASE 30 IU/L (14-46); CALCIUM 8.9 mg/dL (8.5-10.4); CARBON DIOXIDE 24 mEq/l (22-31); CHLORIDE 100 mEq/L (97-110); CREATININE 0.6 mg/dL (0.6-1.0); GLOMERULAR FILTRATION RATE > 60; GLUCOSE 102 mg/dL (70-100); POTASSIUM 4.1 mEq/L (3.5-5.2); SODIUM 134 mEq/L (134-144); TOTAL PROTEIN 6.3 g/dL (6.3-8.2)
[2016-08-06] MEDS: Tiotropium Br/Olodaterol Hcl [Stiolto Respimat Inhal Spray] 2 PUFF IH SCH ×2 (10:12→10:17)
--- NOTE | 2016-08-06 10:43 | CPEKG ---
Heart Rate: 97 RR Interval: 619 P-R Interval: 160 QRSD Interval: 90 QT Interval: 356 QTC Interval: 452 P [place]: 28 QRS [place]: -37 T Wave [place]: -12 EKG Severity - ABNORMAL ECG - EKG Impression: SINUS RHYTHM EKG Impression: LEFT AXIS DEVIATION EKG Impression: NONSPECIFIC T ABNORMALITIES, INFERIOR LEADS Electronically Signed By: Deni Kenny 06-Aug-2016 15:38:08
[2016-08-06] MEDS ORDERED: LORazepam 2 MG/ML INJ IVP ONE (17:00)
--- NOTE | 2016-08-06 17:36 | ECHO ---
[id number] + + [address] : : [place] [address] : : [phone] + + Adult Echocardiographic Report + ------+ :Name: HARRIS CARTER HStudy Date: 08/06/2016 02:36 PM : : Hospital Admission Number: [id number] Locatio n: 382: :: 1935 Gender: Female Height: 66 in : :Age: 80 yrs Race: WH Weight: 140 lb : :Reason For Study: SOB : : BSA: 1.7 meters 2 : :History: No previous : + ------+ MMode/2D Measurements \T\ Calculations IVSd: 1.2 cm LVIDd: 3.4 cm FS: 44.4 % LVOT diam: 2.0 cm LVPWd: 1.1 cm LVIDs: 1.9 cm EDV(Teich): LVOT area: 49.0 ml 3.1 cm2 ESV(Teich): 11.4 ml EF(Teich): 76.7 % LVLd ap4: 7.3 cm SV(MOD-sp4): EDV(MOD-sp4): 36.0 ml 56.0 ml LVLs ap4: 6.1 cm ESV(MOD-sp4): 20.0 ml EF(MOD-sp4): 64.3 % Normal Measurement Values: + + :LVIDd (3.5-5.7cm) IVSd (0.6-1.1cm) LVPWd (0.6-1.1cm) Aortic Root (2.0-3.7cm)Left Atrium (1.5-4.0cm): :LV Vol(d) (76-115ml) LV Vol(s) (29-48ml) Ejec Fraction (50-65%)PV Loyd (0.6- 1.2m/s) TV Loyd (0.4-1.0m/s) : :MV E Loyd (0.8-1.0m/s)MV A Loyd (0.3-1.0m/s)LVOT Loyd (0.7-1.2m/s) Asc Ao Loyd ( 0.9-1.8m/s) : + + Doppler Measurements \T\ Calculations MV E max loyd: MV V2 mean: Ao mean P.5 mmHgLV V1 max: 65.8 cm/sec 65.3 cm/sec Ao V2 mean: 102.2 cm/sec MV A max loyd: MV mean P.2 cm/sec LV V1 max P.8 cm/sec 1.8 mmHg Ao V2 VTI: 17.0 cm 4.2 mmHg MV E/A: 0.85 MV V2 VTI: LEN(I,D): 2.9 cm2 LV V1 mean PG: MV dec time: 15.2 cm 2.1 mmHg 0.15 sec MVA(VTI): 3.2 cm2 LV V1 mean: 63.9 cm/sec LV V1 VTI: 15.5 cm SV(LVOT): 48.8 ml PA V2 max: PI end-d loyd: TR max loyd: 80.4 cm/sec 139.0 cm/sec 191.8 cm/sec PA max PG: TR max P.6 mmHg 14.7 mmHg RAP systole: 10.0 mmHg RVSP(TR): 24.7 mmHg Left Ventricle The left ventricle is normal in size. There is mild concentric left ventricular hypertrophy. Ejection Fraction = 75%. The left ventricle is hyperdynamic. There is Doppler evidence for diastolic dysfunction. No regional wall motion abnormalities noted. Right Ventricle The right ventricle is not well visualized. Atria The left atrial size is normal. Right atrium not well visualized. Mitral Valve The mitral valve is normal in structure and function. There is no mitral valve stenosis. There is no mitral regurgitation noted. Tricuspid Valve The tricuspid valve is normal in structure and function. There is no tricuspid stenosis. There is trace to mild tricuspid regurgitation. Right ventricular systolic pressure is normal. Aortic Valve Mild Aortic Valve Calcification. There is no aortic stenosis. There is no aortic insufficiency. Pulmonic Valve The pulmonic valve is normal in structure and function. There is no pulmonic valvular stenosis. Trace pulmonic valvular regurgitation. Great Vessels The aortic root is normal size. Pericardium/Pleural There is a fat pad seen. trivial pericardial effusion. Conclusion A complete two-dimensional transthoracic echocardiogram was performed (2D, M-mode, Doppler and color flow Doppler). The study was technically difficult. The study was technically limited. Patient sitting up for duration of exam due to difficulty breathing. The left ventricle is normal in size. There is mild concentric left ventricular hypertrophy. Ejection Fraction = 75%. The left ventricle is hyperdynamic. There is Doppler evidence for diastolic dysfunction. The right ventricle is not well visualized. Right atrium not well visualized. There is trace to mild tricuspid regurgitation. Right ventricular systolic pressure is normal. Mild Aortic Valve Calcification Trace pulmonic valvular regurgitation. trivial pericardial effusion. Final Reading Physician: Dr Asha Hicks electronically signed on 08/06/2016 05:35 PM Ordering Physician: Lauren Blair Performed By: Emerald Morgan
--- NOTE | 2016-08-06 17:39 | GCON ---
DATE OF CONSULTATION: 08/06/2016 REASON FOR CONSULTATION: Medical management. HISTORY OF PRESENT ILLNESS: Ms. Reyna is a 80-year-old female, who presented to the hospital for scheduled robotic paraesophageal hernia repair. Performed by Dr. Cheng. I was asked to consult on the patient today in the postoperative setting, postop day 2, secondary to the patient's shortness of breath, as well as tachycardia. Ms. Reyna denies any nausea, vomiting, diarrhea. Denies any fevers, sweats or night chills. Denies any chest pain. She states that she feels like she cannot take a deep breath. She denies any anxiety or other specific complaints. REVIEW OF SYSTEMS: A comprehensive 10-point review of systems is negative other than noted in the HPI. PAST MEDICAL HISTORY: Transitional cell carcinoma of the right renal pelvis, COPD, coronary artery disease. PAST SURGICAL HISTORY: Multiple ureteroscopic treatments for transitional cell carcinoma. FAMILY MEDICAL HISTORY: Reviewed and noncontributory. SOCIAL HISTORY: The patient denies any tobacco or alcohol use. MEDICATIONS: Senokot, MiraLAX, Protonix, Zofran, Lipitor, Tylenol. PHYSICAL EXAM: GENERAL: The patient is alert, oriented, in no acute distress. Comfortable appearing. VITAL SIGNS: Afebrile at 36.5, pulse is 105, respiratory rate is 20, blood pressure is 143/90. She is saturating 94% on 3 L. HEENT: Normocephalic, atraumatic. Mucosal membranes are moist. Pupils equal, round, and reactive to light. NECK: Supple. RESPIRATORY: Lungs are decreased in the bases bilaterally. Clear in the upper lobes. CARDIOVASCULAR: Regular rate and rhythm. Intermittently with tachycardia. GASTROINTESTINAL/ ABDOMEN: Bowel sounds are diminished. Soft. Mildly distended. Tender to palpation. EXTREMITIES: Within normal limits. There is no clubbing or cyanosis appreciated. Range of motion is intact. SKIN: Without rashes or lesions. NEUROLOGIC: The patient is focally intact. LABORATORY DATA: White count is 10.7. D-dimer of 2.2 and an ALT of 64. RADIOLOGICAL STUDIES: Include chest x-ray with mild atelectasis and small left pleural effusion. ASSESSMENT AND PLAN: Ms. Reyna is a 80-year-old female, presenting for scheduled surgical intervention. 1. Tachycardia. The etiology of this is unclear at this time. The patient does not take any rate controlling medications or beta blockers. We will continue to monitor this closely in the hospital setting. We will continue to evaluate for possible pulmonary emboli, as well as other etiology of her tachycardia. Her EKG notes a sinus rhythm. 2. Postop day 1 robotic paraesophageal hernia repair. We will defer to Dr. Cheng regarding this condition. A CT of the abdomen has been ordered and will be completed pending further evaluation concerning the patient's symptoms. 3. Shortness of breath. Again the etiology at this time is unclear. I have reviewed the patient's care with Dr. Farias. Bilateral lower extremity Dopplers are negative for identifiable deep venous thrombosis. The patient is allergic to contrast and will require premedication for a CT angio. I have also ordered an echocardiogram to continue to evaluate the etiology of her shortness of breath. Chest x-ray has minimal atelectasis with noted free air underneath the right hemidiaphragm secondary to recent surgical intervention. She remains afebrile with the etiology pending further workup and evaluation. 4. Pain. This is currently controlled at this time. We will continue to follow along during this patient's hospitalization and assist in her medical management. Further evaluation and recommendations will be pending the patient's continued workup and evaluation. /[id number]/MODL MTDD
[2016-08-06] MEDS ORDERED: LORazepam 2 MG/ML INJ ONE (17:57)
[2016-08-06] MEDS: ONDANSETRON 4 MG/2 ML VIAL IVP PRN (21:47)
[2016-08-07] MEDS ORDERED: LORazepam 2 MG/ML INJ IVP ONE (06:54)
[2016-08-07] MEDS: LR 1,000 ML IV SCH ×2 (07:14→18:18)
[2016-08-07] MEDS: ENOXAPARIN 40 MG/0.4 ML SYR SC SCH (08:22)
[2016-08-07] MEDS: FLUTICASONE NASAL 120 SPRAYS/16 GM MDI EACHNARE SCH (08:23)
[2016-08-07] MEDS ORDERED: LORazepam 1 MG TAB PO PRN (08:35)
--- NOTE | 2016-08-07 08:38 | SOAPPROG ---
SOAP Progress Note Assessment/Plan: Assessment: Stable, cont clears. PT/ambulation. Appreciate IM input. Plan: 08/05/16 10:00 08/06/16 09:25 08/07/16 08:36 Subjective: No changes, denies pain but still with some SOB. Minimal po. Objective: Vital Signs Temp Pulse Resp BP Pulse Ox 36.5 C 100 16 150/87 H 95 08/07/16 07:36 08/07/16 07:36 08/07/16 07:36 08/07/16 07:36 08/07/16 07:36 Laboratory Results 08/06/16 09:45 08/06/16 09:45 08/06/16 08/07/16 08/08/16 05:59 05:59 05:59 Intake Total 1200 774 Output Total 1100 1000 Balance 100 -226 Alert, NAD Tachy but reg Abd soft, NTTP Inc C/D/I U/S, CT without significant abnormality. ICD10 Worksheet Patient Problems: Problems Problem Status Onset Abdominal pain in female Acute
[2016-08-07 11:24] LABS: ANION GAP 11 mEq/L (8-16); CALCIUM 8.8 mg/dL (8.5-10.4); CARBON DIOXIDE 21 mEq/l (22-31); CHLORIDE 102 mEq/L (97-110); CREATININE 0.6 mg/dL (0.6-1.0); GLOMERULAR FILTRATION RATE > 60; GLUCOSE 80 mg/dL (70-100); POTASSIUM 4.5 mEq/L (3.5-5.2); SODIUM 134 mEq/L (134-144)
[2016-08-07] MEDS: Tiotropium Br/Olodaterol Hcl [Stiolto Respimat Inhal Spray] 2 PUFF IH SCH (11:24)
[2016-08-07] MEDS: LEVALBUTEROL 0.63 MG/3 ML DEYVIAL IH SCH ×3 (11:25→22:26)
--- NOTE | 2016-08-07 14:55 | HOSPPROG ---
Hospitalist Progress Note Assessment/Plan: DIAGNOSES: -Tachycardia and dyspnea of uncertain etiology; acute hypoxemic respiratory failure -Status post hiatal hernia repair with robotic surgery -Suspect COPD exacerbation -History of coronary artery disease with no symptoms of angina at this time no heart failure Some of her symptoms in terms of discomfort and respirations with tachycardia and tachypnea are certainly due to postoperative pain and swelling from her surgery. However do suspect that she has undertreated obstructive airways disease and I am adding some bronchodilators and may need steroids. At this time in if she does not improve significantly with that therapy I will feel compelled to look for PE with a CT scan of chest and will have to discuss this. She has been reluctant so far due to concerns about the contrast agent. PLANS: -Albuterol nebulizers -Recheck her respirations and other vital signs after that - consider CT scan of chest if she is not improving today SUBJECTIVE: continues to be short of breath in with some discomfort with inspiration, though she denies that this is a pain that would consider pleuritic pain. She does not have any angina or nausea OBJECTIVE Vitals reviewed: remains tachypneic and tachycardiac requiring ongoing oxygen therapy Exam: alert oriented skin warm dry color ok resps mildly to moderately labored and tachypneic lungs very diminished BSs with somewhat prolonged expiration heart regular tachycardic abd soft nondistended nontender, bowel sounds present limbs warm, no edema iv site ok I reviewed her EKG from yesterday with no significant acute abnormalities present her echocardiogram head shows good LV ejection fraction, no evidence of pulmonary hypertension, no other significant concerning findings Objective: Vital Signs Temp Pulse Resp BP Pulse Ox 36.6 C 103 H 18 150/92 H 96 08/07/16 11:20 08/07/16 11:20 08/07/16 11:20 08/07/16 11:20 08/07/16 11:20 Laboratory Results 08/06/16 09:45 08/07/16 10:52 08/06/16 08/07/16 08/08/16 06:59 06:59 06:59 Intake Total 1200 774 Output Total 1100 1000 650 Balance 646 -425 -707 ICD10 Worksheet Patient Problems: Problems Problem Status Onset Abdominal pain in female Acute
[2016-08-07] MEDS ORDERED: FAMOTIDINE 20 MG/NACL 50 ML IV ONE (16:21)
[2016-08-07] MEDS ORDERED: methylPREDNISolone SOD SUCC 125 MG/2 ML VIAL IVP ONE (16:21)
[2016-08-07] MEDS ORDERED: IOPAMIDOL (ISOVUE-370) 150 ML BTL IV ONE (16:54)
[2016-08-08] MEDS: LORazepam 1 MG TAB PO PRN ×2 (01:48→07:23)
[2016-08-08 05:21] LABS: % IMMATURE GRANULYOCYTES 0.4 % (0.0-1.1); ABSOLUTE IMMATURE GRANULOCYTES 0.03 10^3/uL (0.00-0.10); ADD DIFF? NO; ADD MORPH? NO; ADD SCAN? NO; ATYPICAL LYMPHOCYTE FLAG 0 (0-99); FRAGMENT RBC FLAG 0 (0-99); HEMATOCRIT 43.9 % (38.0-47.0); HEMOGLOBIN 14.8 g/dL (12.6-16.3); LEFT SHIFT FLG 0 (0-99); LIPEMIA HEMOLYSIS FLAG 80 (0-99); MEAN CELL HEMOGLOBIN 30.2 pg (27.9-34.1); MEAN CELL HEMOGLOBIN CONCENTR. 33.7 g/dL (32.4-36.7); MEAN CELL VOLUME 89.6 fL (81.5-99.8); PLATELET CLUMPS FLAG 0 (0-99); PLATELET COUNT 250 10^3/uL (150-400); RED CELL DISTRIBUTION WIDTH 14.1 % (11.5-15.2)
[2016-08-08 05:37] LABS: ANION GAP 12 mEq/L (8-16); CALCIUM 8.7 mg/dL (8.5-10.4); CARBON DIOXIDE 23 mEq/l (22-31); CHLORIDE 99 mEq/L (97-110); CREATININE 0.6 mg/dL (0.6-1.0); GLOMERULAR FILTRATION RATE > 60; GLUCOSE 142 mg/dL (70-100); POTASSIUM 5.1 mEq/L (3.5-5.2); SODIUM 134 mEq/L (134-144); SPECIMEN HEMOLYSIS 114
[2016-08-08] MEDS: LEVALBUTEROL 0.63 MG/3 ML DEYVIAL IH SCH ×4 (06:17→21:36)
[2016-08-08] MEDS: Tiotropium Br/Olodaterol Hcl [Stiolto Respimat Inhal Spray] 2 PUFF IH SCH (08:38)
[2016-08-08] MEDS: ENOXAPARIN 40 MG/0.4 ML SYR SC SCH (09:59)
[2016-08-08] MEDS: FLUTICASONE NASAL 120 SPRAYS/16 GM MDI EACHNARE SCH (09:59)
[2016-08-08] MEDS: ATORVASTATIN CALCIUM 40 MG TAB PO SCH (09:59)
--- NOTE | 2016-08-08 10:03 | SOAPPROG ---
SOAP Progress Note Assessment/Plan: Assessment: Continued SOB/hypoxia/tachycardia of uncertain etiology. Consider pulmonary consultation. Will attempt to meet with patient and family to discuss resuscitation status. Plan: 08/05/16 10:00 08/06/16 09:25 08/07/16 08:36 08/08/16 10:01 Subjective: Some confusion overnight. C/o SOB. Denies pain. Not ac po due to SOB Objective: Vital Signs Temp Pulse Resp BP Pulse Ox 36.5 C 130 H 16 129/94 H 88 L 08/08/16 03:17 08/08/16 09:48 08/08/16 08:42 08/08/16 03:17 08/08/16 09:48 Laboratory Results 08/08/16 04:45 08/08/16 04:45 08/07/16 08/08/16 08/09/16 05:59 05:59 05:59 Intake Total 774 1185 Output Total 1000 1825 Balance -226 -640 Responsive but with obvious SOB Tachy but regular Abd soft, [employer] C/D/I ICD10 Worksheet Patient Problems: Problems Problem Status Onset Abdominal pain in female Acute
[2016-08-08] MEDS: LR 1,000 ML IV SCH ×2 (12:44→23:45)
--- NOTE | 2016-08-08 13:25 | GCON ---
PULMONARY/CRITICAL CARE CONSULTATION DATE OF CONSULTATION: 08/08/2016 REFERRING PHYSICIAN: rC Cheng MD REASON FOR REFERRAL: Evaluation and management of hypoxemia and dyspnea. HISTORY: The patient is a 80-year-old woman with a history of COPD who was admitted to the hospital on August 04 for an elective paraesophageal hernia repair that was performed robotically by Dr. Anurag vela on that date. Since then, she has complained of significant shortness of breath. She has a mild cough with some scant sputum. She has also had tachycardia. She feels she has also had hypoxe ilda with increased oxygen needs. She denies chest pain. PAST MEDICAL HISTORY: COPD. The severity of this is unknown. She uses oxygen at night and sometim es at day during rest, but not with activity. She sometimes uses an albuterol inhaler with activity . MEDICATIONS: Senokot, MiraLAX, Protonix, Zofran, Lipitor, Tylenol, and albuterol. ALLERGIES: Contrast and penicillin. SOCIAL HISTORY: The patient does not currently smoke or drink. FAMILY HISTORY: Unremarkable. REVIEW OF SYSTEMS: A comprehensive 10-point review of systems adds nothing to the history of presen t illness. PHYSICAL EXAMINATION: GENERAL: The patient is awake and alert but she appears quite weak with weak voice. VITAL SIGNS: Her blood pressure is 158/94. Heart rate is 115. Oxygen saturations are 95% on 5 L. HEENT: Normocephalic and atraumatic. No icterus. NECK: No adenopathy. Trachea is midl ine. CHEST: Decreased breath sounds in both bases. CARDIAC: Regular tachycardia without murmur. ABDOMEN: Soft, nontender. Bowel sounds are present. EXTREMITIES: No clubbing, cyanosis, or renee a. LABORATORY: White blood count of 7.1, hemoglobin is 14.8. Chemistry group is normal. Venous lacta te is 1.7. D-dimer is 2.3. An echocardiogram demonstrates mild left ventricular hypertrophy with an ejection fraction of 75%. There is Doppler evidence of diastolic dysfunction and no significant valvular abnormalities or pulm onary hypertension. A CT scan of the chest is negative for PE. It shows extensive atelectasis of both lower lungs, with collapse of most of the basal segments and contrast opacification in the basilar pulmonary arteries entering these areas of atelectasis. There is some moderate adenopathy in the aortopulmonary regio n. ASSESSMENT: Dyspnea and hypoxemia. This is likely due to a combination of chronic obstructive pulm onary disease as well as very significant acute atelectasis. The atelectasis is fairly extensive an d good blood flow is seen in these regions, which will result in shunting and significant hypoxemia that will be relatively refractory to oxygen therapy. The atelectasis could be due to poor effort a s well as possibly some diaphragmatic dysfunction related to her esophageal surgery. I do not suspe ct any significant pneumonia and do not think that she is having an acute chronic obstructive pulmon lidia disease exacerbation. RECOMMENDATIONS: 1. Incentive spirometry at least hourly. I reminded the patient to do this, and she will likely be nefit from frequent encouragement to do incentive spirometry. 2. I have ordered EzPAP through respiratory therapy to assist in recruiting her atelectatic lungs. 3. Sit up in a chair and ambulate as much as possible to increase deep breathing. 4. Continue albuterol as needed. /[id number]/MODL
--- NOTE | 2016-08-08 19:17 | HOSPPROG ---
Hospitalist Progress Note Assessment/Plan: DIAGNOSES: -Tachycardia of uncertain etiology likely multifactorial -Acute hypoxemic respiratory failure -Likely COPD exacerbation -Left side pleural effusion -severe deconditioning -acute metabolic encephalopathy -Mediastinal Adenopathy noted on CT scan -Status post hiatal hernia repair with robotic surgery -History of coronary artery disease with no symptoms of angina at this time no heart failure No PE or other definite causative findings on CT for her dyspnea and tachycardia. I suspect this is due to Obstructive Airway Dz and to pain and swelling from surgery. At this time she feels the albuterol started yesterdday is helping. Will add some steroid, and have recommended she use incentive spirometer more and further attempts at mobility. PLANS: -Albuterol nebulizers added and will add some steroid -PT OT and incentive spirometer -increase po intake and activity / mobility as able -she will need eventual evaluation of mediastinal adenopathy SUBJECTIVE: still sob but states the albuterol nebs are helping very weak not taking much po at all and not getting up to move no chills OBJECTIVE Vitals reviewed: remains tachypneic and tachycardiac, no fever requiring ongoing oxygen therapy Exam: alert some confusion today skin warm dry color ok resps mildly to moderately labored and tachypneic lungs very diminished BSs but better resp phase today heart regular tachycardic abd soft nondistended nontender, bowel sounds present limbs warm, no edema iv site ok I have reviewed CT chest images, my interpretation: No PE, no pneumonia, no chf , so pleural effusions at L base > R and some adjacent atelectasis. Radiologist notes some mediastinal adenopathy, which will likely need follow up evaluation Objective: Vital Signs Temp Pulse Resp BP Pulse Ox 36.6 C 111 H 24 H 145/95 H 93 08/08/16 18:27 08/08/16 18:27 08/08/16 18:27 08/08/16 18:27 08/08/16 18:27 Laboratory Results 08/08/16 04:45 08/08/16 04:45 08/07/16 08/08/16 08/09/16 06:59 06:59 06:59 Intake Total 774 1185 1200 Output Total 1000 1825 200 Balance -226 -640 1000 ICD10 Worksheet Patient Problems: Problems Problem Status Onset Abdominal pain in female Acute
[2016-08-09] MEDS: LEVALBUTEROL 0.63 MG/3 ML DEYVIAL IH SCH ×4 (05:43→22:45)
[2016-08-09] MEDS: LR 1,000 ML IV SCH ×2 (09:08→17:52)
[2016-08-09] MEDS: Tiotropium Br/Olodaterol Hcl [Stiolto Respimat Inhal Spray] 2 PUFF IH SCH (10:20)
[2016-08-09] MEDS: ATORVASTATIN CALCIUM 40 MG TAB PO SCH (10:56)
[2016-08-09] MEDS: ENOXAPARIN 40 MG/0.4 ML SYR SC SCH (10:57)
[2016-08-09] MEDS: FLUTICASONE NASAL 120 SPRAYS/16 GM MDI EACHNARE SCH (10:58)
--- NOTE | 2016-08-09 11:14 | HOSPPROG ---
Hospitalist Progress Note Assessment/Plan: DIAGNOSES: -Acute hypoxemic respiratory failure -atelectasis -Likely COPD exacerbation -Left side pleural effusion -severe deconditioning -acute metabolic encephalopathy -Mediastinal Adenopathy noted on CT scan -Status post hiatal hernia repair with robotic surgery -History of coronary artery disease with no symptoms of angina at this time, no heart failure She is doing almost no activity, not up to chair, only up to bedside commode Denies any pain today, complains of weakness PLANS: -continue Albuterol nebulizers -PT OT and incentive spirometer -increase po intake and activity / mobility as able -she will need eventual evaluation of mediastinal adenopathy SUBJECTIVE: still sob but states the albuterol nebs are helping very weak still taking taking almost no po at all OBJECTIVE Vitals reviewed: remains tachypneic and tachycardiac, no fever requiring ongoing oxygen therapy Exam: alert better oriented skin warm dry color ok resps remain mildly to moderately labored and tachypneic lungs still very diminished BSs heart regular tachycardic abd soft nondistended nontender, bowel sounds present limbs warm, trace if any edema iv site ok Objective: Vital Signs Temp Pulse Resp BP Pulse Ox 36.6 C 105 H 16 172/102 H 92 08/09/16 08:00 08/09/16 08:00 08/09/16 08:00 08/09/16 09:33 08/09/16 08:00 Laboratory Results 08/08/16 04:45 08/08/16 04:45 08/08/16 08/09/16 08/10/16 06:59 06:59 06:59 Intake Total 1185 2400 Output Total 1821 450 400 Balance -640 1950 -400 ICD10 Worksheet Patient Problems: Problems Problem Status Onset Abdominal pain in female Acute
--- NOTE | 2016-08-09 11:54 | SOAPPROG ---
SOAP Progress Note Assessment/Plan: Assessment: Improving SOB/tachycardia, appreciate consultations. Plan IS/nebs/ambulation. Cont clears. Plan: 08/05/16 10:00 08/06/16 09:25 08/07/16 08:36 08/08/16 10:01 08/09/16 11:53 Subjective: Patient feels better, decreased SOB. Kal some clears po. Objective: Vital Signs Temp Pulse Resp BP Pulse Ox 36.6 C 111 H 20 172/102 H 92 08/09/16 08:00 08/09/16 10:15 08/09/16 10:15 08/09/16 09:33 08/09/16 10:15 Laboratory Results 08/08/16 04:45 08/08/16 04:45 08/08/16 08/09/16 08/10/16 05:59 05:59 05:59 Intake Total 1185 2400 Output Total 1825 450 700 Balance -640 1950 -700 Alert, responsive Tachy but reg Abd soft, [employer] C/D/I ICD10 Worksheet Patient Problems: Problems Problem Status Onset Abdominal pain in female Acute
--- NOTE | 2016-08-09 14:57 | PDINTPN ---
Digital Color Press Operator Progress Note Assessment/Plan: Assessment: Hypoxemia: Primarily due to significant atelectasis of both lower lobes. She's doing EZ PAP. Not compliant with doing frequent IS. ? any component of diaphragm dysfunction related to paraesophageal hernia repair? Plan: Continue EZ Pap. I encouraged her to do IS at least hourly while awake, and sit in chair and ambulate as much as possible. Will have RT give her an EPAP valve that she can use by herself to help recruit atelectatic areas as well. 08/09/16 14:53 08/09/16 14:54 Subjective: Still feels weak, feels like she can't take a full breath. No cough. Says she did IS "Once" Objective: Vital Signs Temp Pulse Resp BP Pulse Ox 36.4 C 95 20 100/87 H 97 08/09/16 12:00 08/09/16 12:00 08/09/16 12:00 08/09/16 12:00 08/09/16 12:00 Laboratory Results 08/08/16 04:45 08/08/16 04:45 08/08/16 08/09/16 08/10/16 05:59 05:59 05:59 Intake Total 1185 2400 Output Total 1825 450 900 Balance -640 1950 -900 Physical Exam - Physical Exam General Appearance: no apparent distress, No alert (lethargic) EENT: pharynx normal Neck: normal inspection Respiratory: decreased breath sounds (bilateral bases) Cardiac/Chest: regular rate, rhythm, edema Abdomen: non-tender, soft Skin: normal color, warm/dry Extremities: non-tender Neuro/Psych: No alert (lethargic) ICD10 Worksheet Patient Problems: Problems Problem Status Onset Abdominal pain in female Acute
[2016-08-10] MEDS: LEVALBUTEROL 0.63 MG/3 ML DEYVIAL IH SCH ×5 (05:32→22:04)
[2016-08-10] MEDS: ENOXAPARIN 40 MG/0.4 ML SYR SC SCH (08:33)
[2016-08-10] MEDS: ATORVASTATIN CALCIUM 40 MG TAB PO SCH (08:33)
[2016-08-10] MEDS: FLUTICASONE NASAL 120 SPRAYS/16 GM MDI EACHNARE SCH (08:35)
[2016-08-10] MEDS: Tiotropium Br/Olodaterol Hcl [Stiolto Respimat Inhal Spray] 2 PUFF IH SCH (10:06)
--- NOTE | 2016-08-10 17:01 | SOAPPROG ---
SOAP Progress Note Assessment/Plan: Assessment: Assessment: Status post paraesophageal hernia repair, fundoplication. History of COPD Bi-basilar atelectasis on CT scan Mediastinal adenopathy: Query etiology Hypoxemia: Multifactorial: Postoperative changes, underlying COPD, atelectasis of lower lobes. She's doing EZ PAP. Not compliant with doing frequent IS. ? any component of diaphragm dysfunction related to paraesophageal hernia repair? Plan: Continue EZ Pap. Increase mobilization as tolerated. Check sniff test tomorrow. Continue bronchopulmonary therapies including IS, EzPAP, and nebulized therapies. Will try to check vital capacity, consider ABG in a.m. Subjective: Remains quite weak, not participating with ambulation, IS. She continues to feel like she cannot take a deep breath. Objective: Vital Signs Temp Pulse Resp BP Pulse Ox 36.1 C 107 H 24 H 169/93 H 90 L 08/10/16 16:00 08/10/16 16:00 08/10/16 16:00 08/10/16 16:00 08/10/16 16:00 Laboratory Results 08/08/16 04:45 08/08/16 04:45 08/09/16 08/10/16 08/11/16 05:59 05:59 05:59 Intake Total 2400 1200 Output Total 450 1400 Balance 1950 -200 Physical Exam - Physical Exam General Appearance: alert, no apparent distress, other (In chair, appears weak) EENT: other (Nasal cannula at 5 L) Neck: normal inspection Respiratory: decreased breath sounds (At bases), No rales, No rhonchi, No wheezing Cardiac/Chest: tachycardia (Regular) Abdomen: normal bowel sounds, non-tender (Tenderness present), No soft (Patient voluntarily guarding somewhat) Skin: normal color, warm/dry Extremities: No pedal edema Neuro/Psych: no motor/sensory deficits, No cognition abnormalities (Some confusion earlier) ICD10 Worksheet Patient Problems: Problems Problem Status Onset Abdominal pain in female Acute
--- NOTE | 2016-08-10 17:01 | HOSPPROG ---
Hospitalist Progress Note Assessment/Plan: DIAGNOSES: -Acute hypoxemic respiratory failure -atelectasis -?COPD exacerbation -Left side pleural effusion -severe deconditioning -acute metabolic encephalopathy -Mediastinal Adenopathy noted on CT scan -Status post hiatal hernia repair with robotic surgery -History of coronary artery disease with no symptoms of angina at this time, no heart failure Continues to be really quite immobilized by discomfort. It is not clear to me exactly what all the discomfort is from based on her description of the location but I believe this is probably postoperative pain partly due to swelling as there was some fluid collection on the CT scan. I would from review with Dr. Cheng. At this point I agree with Dr. Walters that she certainly needs to try and increase ambulation and sitting in a chair along with using incentive spirometry to help her respirations. I wonder if another CT scan to recheck the a fluid collection and swelling in the area of her surgery might be useful but will not order that until discussing with Dr. Cheng. PLANS: -continue Albuterol nebulizers -PT OT and incentive spirometer -increase po intake and activity / mobility as able -she will need eventual evaluation of mediastinal adenopathy SUBJECTIVE: At this point she says it hurts in the low sternal epigastric area to talk. She denies a sore throat but does have a bit of a cough at this point. She still says she is very short of breath. Denies pleuritic pain or leg pain. Denies chills or sweats. OBJECTIVE Vitals reviewed: remains tachypneic and tachycardiac, no fever requiring ongoing oxygen therapy Exam: alert oriented Extremely weak, currently sitting in a chair but has been unable to get from the bed to the adjacent chair without assistance. Looks extremely fatigued and uncomfortable skin warm dry color ok resps remain mildly labored and tachypneic lungs still very diminished BSs heart regular tachycardic abd soft nondistended nontender, bowel sounds present limbs warm, trace if any edema iv site ok Objective: Vital Signs Temp Pulse Resp BP Pulse Ox 36.1 C 107 H 24 H 169/93 H 90 L 08/10/16 16:00 08/10/16 16:00 08/10/16 16:00 08/10/16 16:00 08/10/16 16:00 Laboratory Results 08/08/16 04:45 08/08/16 04:45 08/09/16 08/10/16 08/11/16 06:59 06:59 06:59 Intake Total 2400 1200 Output Total 450 1400 Balance 1950 -200 ICD10 Worksheet Patient Problems: Problems Problem Status Onset Abdominal pain in female Acute
[2016-08-11] MEDS: LEVALBUTEROL 0.63 MG/3 ML DEYVIAL IH SCH ×4 (05:54→22:23)
[2016-08-11] MEDS: ATORVASTATIN CALCIUM 40 MG TAB PO SCH (08:03)
[2016-08-11] MEDS: ENOXAPARIN 40 MG/0.4 ML SYR SC SCH (08:03)
[2016-08-11] MEDS: FLUTICASONE NASAL 120 SPRAYS/16 GM MDI EACHNARE SCH (08:03)
--- NOTE | 2016-08-11 08:48 | SOAPPROG ---
Downtime Inpatient MD Late Entry SOAP Note: Pt seen and examined 3/6 A/P Stable, cont RT/IS/amb S: Patient notes some SOB, somewhat improved. O: Responsive, NAD Tachy Abd unchanged.
--- NOTE | 2016-08-11 09:17 | SOAPPROG ---
SOAP Progress Note Assessment/Plan: Assessment: Persistent SOB with improved oxygenation/tachycardia. Cont IS/amb. Poor po intake, consider PICC/TPN. Plan: 08/05/16 10:00 08/06/16 09:25 08/07/16 08:36 08/08/16 10:01 08/09/16 11:53 08/11/16 09:16 08/11/16 09:16 Subjective: Patient still c/o SOB. Denies abd pain, N/V. Objective: Vital Signs Temp Pulse Resp BP Pulse Ox 36.6 C 97 18 159/92 H 93 08/11/16 08:00 08/11/16 08:00 08/11/16 08:00 08/11/16 08:00 08/11/16 08:00 Laboratory Results 08/08/16 04:45 08/08/16 04:45 08/10/16 08/11/16 08/12/16 05:59 05:59 05:59 Intake Total 1200 570 Output Total 1400 1200 Balance -200 -630 Responsive, NAD RRR Abd soft, [employer] C/D/I ICD10 Worksheet Patient Problems: Problems Problem Status Onset Abdominal pain in female Acute
[2016-08-11] MEDS ORDERED: ALBUTEROL 3 ML DEYVIAL ONE (09:38)
[2016-08-11 10:00] LABS: BASE EXCESS 5.2 mEq/L (-2.5-2.5); BICARBONATE 31 mEq/L (22-26); MEASURED OXYGEN SATURATION 90 % (92-95); PCO2 51 mmHg (34-38); PO2 54 mmHg (65-75); TCO2 32 mEq/L (23-27)
--- NOTE | 2016-08-11 10:37 | HOSPPROG ---
Hospitalist Progress Note Assessment/Plan: DIAGNOSES: -Acute hypoxemic respiratory failure in postoperative setting -atelectasis -?COPD exacerbation -Left side pleural effusion -severe deconditioning -acute metabolic encephalopathy -Mediastinal Adenopathy noted on CT scan -Status post hiatal hernia repair with robotic surgery -History of coronary artery disease with no symptoms of angina at this time, no heart failure Today she is finally looking slightly better and taking a deeper breath on my examination but remains very weak and immobilized. Her p.o. intake remains very minimal but at least she is getting a slight bit in. PLANS: -continue strong encouragement from physicians, nurses and family for mobility efforts and p.o. intake -continue Albuterol nebulizers -PT OT and incentive spirometer -increase po intake and activity / mobility as able -she will need eventual consideration for radiology or other evaluation of mediastinal adenopathy -will repeat CBC and chemistry SUBJECTIVE: States she might feel slightly better today and taking a slightly better breath , however still feels fairly short of breath extremely weak and not motivated at all to eat. She has family members who are here at the bedside and they along with her nurse have been working hard to get her to eat and she has got a little bit of clear liquid diet and so far today Still a full 2 person assist for transfer and not really walking at all OBJECTIVE Vitals reviewed: Pulse finally slowing down into the 90s, vitals otherwise stable without fever requiring ongoing oxygen therapy Exam: alert mildly disoriented, but looks more comfortable today and is actually smiling Extremely weak, currently sitting in a chair resps remain mildly labored and tachypneic though today she is taking a better Breath visibly lungs still very diminished BSs no audible rales or rhonchi at this time heart regular tachycardic abd soft nondistended nontender, bowel sounds present limbs warm, trace if any edema iv site ok Objective: Vital Signs Temp Pulse Resp BP Pulse Ox 36.6 C 92 18 159/92 H 92 08/11/16 08:00 08/11/16 10:21 08/11/16 10:21 08/11/16 08:00 08/11/16 10:21 Laboratory Results 08/08/16 04:45 08/08/16 04:45 08/10/16 08/11/16 08/12/16 06:59 06:59 06:59 Intake Total 1200 570 Output Total 1400 1200 Balance -200 -630 ICD10 Worksheet Patient Problems: Problems Problem Status Onset Abdominal pain in female Acute
[2016-08-11] MEDS: Tiotropium Br/Olodaterol Hcl [Stiolto Respimat Inhal Spray] 2 PUFF IH SCH (11:13)
[2016-08-11] MEDS: ONDANSETRON 4 MG/2 ML VIAL IVP PRN (18:52)
--- NOTE | 2016-08-11 20:52 | SOAPPROG ---
SOAP Progress Note Assessment/Plan: Assessment: Status post paraesophageal hernia repair, fundoplication. History of COPD. Unfortunately, the patient could not do even simple spirometry today. Blood gas shows hypercarbia with a normal pH. Few probably is retainer, close to her usual baseline. Bi-basilar atelectasis on CT scan Mediastinal adenopathy: Query etiology. Will need follow-up CT scan as an outpatient and workup as indicated. Hypoxemia: Multifactorial: Postoperative changes, underlying COPD, atelectasis of lower lobes. She's doing EZ PAP. Not compliant with doing frequent IS. Sniff test was requested but the patient got dizzy prior to the test in radiology and it was canceled. Overall, she appears to be improving. Plan: Increase mobilization as tolerated. Readdress possible sniff test tomorrow. Continue bronchopulmonary therapies including IS, EzPAP, and nebulized therapies. Subjective: Feels a little bit better, can Breeze somewhat deeper, voice stronger today. Could not do bedside spirometry. Apparently got dizzy when she went down for her sniff test. Objective: Vital Signs Temp Pulse Resp BP Pulse Ox 36.6 C 102 H 18 154/88 H 92 08/11/16 15:43 08/11/16 16:50 08/11/16 16:50 08/11/16 15:43 08/11/16 16:50 Laboratory Results 08/08/16 04:45 08/08/16 04:45 08/10/16 08/11/16 08/12/16 05:59 05:59 05:59 Intake Total 1200 570 Output Total 1400 1200 Balance -200 -630 Laboratory Tests Laboratory Tests 08/11/16 09:50 pCO2 51 H pO2 54 L ABG pH 7.40 ABG O2 Saturation 90 L Total O2 Concentration 5.0 Physical Exam - Physical Exam General Appearance: other (Up in chair, responsive, stronger voice) EENT: other (Nasal cannula at 4-5 L) Neck: normal inspection (No JVD) Respiratory: lungs clear, decreased breath sounds (At bases), No rales, No wheezing Cardiac/Chest: regular rate, rhythm, tachycardia Abdomen: normal bowel sounds, soft, No non-tender (Mild tenderness persists) Skin: warm/dry Lymphatic: no adenopathy Extremities: pedal edema (Trace +) Neuro/Psych: no motor/sensory deficits, motor weakness, No cognition abnormalities ICD10 Worksheet Patient Problems: Problems Problem Status Onset Abdominal pain in female Acute
[2016-08-12 00:15] VITALS: TEMP 97.7
[2016-08-12 04:14] LABS: BASE EXCESS -1.1 mEq/L (-2.5-2.5); BICARBONATE 37 mEq/L (22-26); MEASURED OXYGEN SATURATION 96 % (92-95); PO2 107 mmHg (65-75)
[2016-08-12 04:26] LABS: PCO2 > 125 mmHg (34-38)
[2016-08-12 04:27] LABS: TCO2 42 mEq/L (23-27)
[2016-08-12] MEDS ORDERED: ROCURONIUM 100 MG/10 ML VIAL ONE (04:28)
[2016-08-12] MEDS ORDERED: ETOMIDATE 40 MG/20 ML INJ ONE (04:28)
--- NOTE | 2016-08-12 04:29 | EDPHY ---
Inpatient Procedure Narrative: Acute change in mental status I was called emergently from the ER to inpatient CT scan for unresponsive acute mental status change patient. Upon arrival I found this patient to be unresponsive with agonal respirations around 6. She was unresponsive and did not follow any commands. According to inpatient nursing staff they report to me that she had an acute change in mental status approximately an hour ago and she was being evaluated for this in CT. When I arrived and found the patient to be unresponsive vaginal respirations. She was emergently brought to ER room 2 for intubation. Per nursing staff was noted that she has a history of COPD and has been on oxygen with sat of 92% on the floor. Her nurse noticed that she had a change of mental status approximately an hour ago they called the stat team to have this evaluated. 0425: due to this patient being unresponsive and CT patient was brought to ER room 2 and intubated by myself. Patient was placed on full sewing machine operator plastic zipper including pulse ox she is breathing 6 -7 times per minute unresponsive. Heart rate in the 120s. Satting 92% on a non -rebreather. Per nursing staff she had a normal glucose prior to coming to CT. 0425: under RSI medications with direct laryngoscopy with a MAC 4 blade the patient was intubated with a 7 0 ET tube. 20 of etomidate IV was used as well as 100 mg rocuronium. There were no complications cords were directly visualized with MAC 4 blade endotracheal tube was passed past the cords. The tube was confirmed with capnography change. Bilateral breath sounds, chest x- ray has been ordered for confirmation, and humidified air was seen in the tube. At this time patient remained stable but in critical condition will go to the ICU after being intubated after chest x-ray. unclear at this time what the actual cause is of respiratory failure however patient does have a COPD history and will need an ABG checked to make sure the patient is not hypercarbic Critical Care: Total Critical Care Time Spent Managing this Patient: 30 Minutes. This time was spent Exclusively with this patient. This Care was exclusive of procedures. The Organ System/life at risk was Cardio/Pulmonary, acute mental status This Patient was in Critical Condition because unresponsive, Agonal respirations. Final diagnosis: Respiratory failure
[2016-08-12] MEDS ORDERED: EPINEPHrine 1 MG/10 ML SYR IVP ONE ×3 (04:40→05:06)
[2016-08-12] MEDS ORDERED: NS IV SCH (05:00)
[2016-08-12] MEDS ORDERED: ROCURONIUM IV SCH (05:00)
[2016-08-12] MEDS ORDERED: CALCIUM CHLORIDE 1 GM/10 ML INJ ONE (05:00)
[2016-08-12] MEDS ORDERED: SODIUM BICARBONATE 50 MEQ/50 ML SYR ONE (05:00)
[2016-08-12] MEDS ORDERED: CALCIUM CHLORIDE 1 GM/10 ML INJ IV ONE (05:06)
[2016-08-12] MEDS ORDERED: SODIUM BICARBONATE 50 MEQ/50 ML SYR IVP ONE ×3 (05:07)
--- NOTE | 2016-08-12 05:12 | EDPHY ---
Inpatient Procedure Narrative: 0440: After this patient was intubated and stabilized she was being transported to the ICU where was noted that she had in asystole rhythm on the monitor with no pulse. We immediately started ACLS protocol with chest compressions and 1 mg a IV epinephrine was given and patient had return of spontaneous circulation. 0454: patient is noted be pulses again repeat CPR was initiated she was given 2 amps of bicarb, 1 g of calcium, 1 mg of epinephrine and CPR was performed for another 4 minutes. She did have return of spontaneous circulation heart rate 129 pulse ox 99% respiratory rate 22 BVM, blood pressure 194/138. Due to her pH being very low she was given another amp of bicarb. 0505: EKG was performed. This shows time of EKG 5:03 a.m., sinus tachycardia rate of 140s nonspecific intraventricular conduction delay present. 0509: at this time this patient is hemodynamically stable on the ventilator pulse is 139 pulse ox 97% respiratory rate 18 peep of 5, tidal volume 550. At this time this patient is hemodynamically stable to be transferred back to the intensive care unit. Dr. Farias the hospitalist service has been updated on the status of this patient and the events that occurred in the emergency room. Critical Care: Total Critical Care Time Spent Managing this Patient: 60 Minutes. This time was spent Exclusively with this patient. This Care was exclusive of procedures. The Organ System/life at risk was cardiopulmonary This Patient was in Critical Condition because cardiopulmonary arrest 0510: this time this patient's critical condition. Unclear why she is having cardiopulmonary arrest. I did recommend to the hospitalist service that this patient has a CT angiogram chest abdomen pelvis to evaluate for pulmonary embolism. She did have a CT scan head without contrast that showed no bleed or acute infarct when she arrived to the emergency room initially from CT for acute change in altered mental status from her inpatient room. ED x-ray chest one view: Endotracheal tube is in good position. As above the freddy. Good lung bliss bilaterally. Cardiac silhouette narrow. No evidence of pneumothorax or tension pneumothorax. Chest x-ray image interpreted by myself.
[2016-08-12 05:23] VITALS: BP 110/66; PULSE 143; RESP 22; O2SAT 94
[2016-08-12 05:54] LABS: ADD DIFF? YES; ADD MORPH? NO; ADD SCAN? NO; ATYPICAL LYMPHOCYTE FLAG 0 (0-99); FRAGMENT RBC FLAG 0 (0-99); HEMATOCRIT 40.3 % (38.0-47.0); LEFT SHIFT FLG 20 (0-99); LIPEMIA HEMOLYSIS FLAG 90 (0-99); MEAN CELL HEMOGLOBIN 30.8 pg (27.9-34.1); MEAN CELL HEMOGLOBIN CONCENTR. 34.7 g/dL (32.4-36.7); MEAN CELL VOLUME 88.8 fL (81.5-99.8); MEAN PLATELET VOLUME 10.8 fL (8.7-11.7); PLATELET CLUMPS FLAG 0 (0-99); PLATELET COUNT 299 10^3/uL (150-400); RED BLOOD CELL COUNT 4.54 10^6/uL (4.18-5.33); RED CELL DISTRIBUTION WIDTH 13.7 % (11.5-15.2)
[2016-08-12] MEDS: LEVALBUTEROL 0.63 MG/3 ML DEYVIAL IH SCH (05:54)
[2016-08-12] MEDS ORDERED: NOREPINEPHRINE BITARTRATE 4 MG in D5W 500 ML IV SCH (06:00)
[2016-08-12] MEDS ORDERED: VASOPRESSIN/DEXTROSE 250 ML IV SCH (06:00)
[2016-08-12 06:02] LABS: ALANINE AMINOTRANSFERASE 56 IU/L (9-52); ALBUMIN 3.7 g/dL (3.5-5.0); ALKALINE PHOSPHATASE 41 IU/L (38-126); ANION GAP 14 mEq/L (8-16); ASPARTATE AMINOTRANSFERASE 56 IU/L (14-46); BILIRUBIN,TOTAL 0.9 mg/dL (0.1-1.4); CALCIUM 7.7 mg/dL (8.5-10.4); CARBON DIOXIDE 36 mEq/l (22-31); CHLORIDE 86 mEq/L (97-110); CREATININE 0.5 mg/dL (0.6-1.0); GLOMERULAR FILTRATION RATE > 60; GLUCOSE 172 mg/dL (70-100); POTASSIUM 3.4 mEq/L (3.5-5.2); SODIUM 136 mEq/L (134-144); TOTAL PROTEIN 7.1 g/dL (6.3-8.2)
--- NOTE | 2016-08-12 06:52 | HOSPPROG ---
Hospitalist Progress Note Assessment/Plan: Cross cover critical care note: Initially called to evaluate patient due to abrupt mental status change with poor responsiveness and increased difficulty with respirations. Sent to CT scan as stroke alert. Reviewed with [facility] with plan for non con head CT. ABG sent and found to have pCO2 of >125 which was thought to be more likely etiology for her MS changes--emergently intubated by ER doctor then sent to head CT. In CT patient became pulseless, 1 round of CPR performed including epi x [address] performed and reviewed and was negative for any acute findings on personal review. Patient then suffered a second cardiac arrest , again had ROSC with a second round of CPR and epi. Transferred to ICU, hypotensive, intubated, unresponsive. CXR personally reviewed with hyperexpansion, elevated right hemidiaphragm but no other acute findings. Called gen surg to have central line placed and pressors started, plan also for starting HACA protocol. At that time family arrived--brother who is MDPOA and sister in law. They both confirm that patient has been adamantly DNR for years ( chart has her listed as FC). After long discussion, they feel that the best thing to do is to extubated, and follow comfort measures only which is in keeping with her wishes. Plan relayed to nursing staff and implemented. BP 60/ 30 prior to extubation and suspect she will quickly after this is completed. > 120 minutes spent in direct face to face critical care/patient care time including review of serial xrays, head CT, labs and discussing goals of care with family, reviewing care plan with ER doctor and gen surgery. Objective: Vital Signs Temp Pulse Resp BP Pulse Ox 36.5 C 143 H 22 H 110/66 94 08/12/16 00:00 08/12/16 05:06 08/12/16 05:06 08/12/16 05:06 08/12/16 05:06 Laboratory Results 08/12/16 05:00 08/12/16 05:00 08/11/16 08/12/16 08/13/16 05:59 05:59 05:59 Intake Total 570 50 Output Total 1200 Balance -630 50 ICD10 Worksheet Patient Problems: Problems Problem Status Onset Abdominal pain in female Acute
[2016-08-12 06:56] LABS: LARGE PLATELETS PRESENT; PLATELET ESTIMATE ADEQUATE (ADEQ)
--- NOTE | 2016-08-12 08:18 | PDCONSULT ---
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 Hospitalist indicates family has expressed the patient is DNR and they wish for extubation and comfort measures. HACA protocol to be discontinued. Will remain available for any neurologic issues. Pt not seen or examined - no charges.
[2016-08-12] MEDS ORDERED: PANTOPRAZOLE SODIUM 40 MG in NS 100 ML IV SCH (09:00)
--- NOTE | 2016-08-12 09:03 | GDS ---
Please note this is a summary. DIAGNOSES AT THE TIME OF : 1. Acute hypoxic/hypercarbic respiratory failure. 2. Acute encephalopathy. 3. Chronic obstructive pulmonary disease with acute exacerbation. 4. Status post hiatal hernia repair. 5. Severe deconditioning. 6. History of coronary artery disease. 7. Left-sided pleural effusion. CONSULTATIONS: 1. Medicine Service. The patient was initially admitted under general surgery with Dr. Cheng as primary. 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 PROCEDURES PERFORMED: 1. Paraesophageal hernia repair and fundoplication. 2. Abdominal pelvic CT. 3. Echocardiogram. 4. Chest and thorax CT angiogram. 5. Endotracheal intubation. HOSPITAL COURSE BY PROBLEM: 1. Acute hypoxic/hypercarbic respiratory failure. This progressed over the course of the evening o f patient's . She was found to have a pCO2 of 125 and was urgently intubated. The etiology wa s unclear, though she did have underlying COPD and perhaps simply was having increasing CO2 retentio n leading to her ultimate arrest. Chest x-rays obtained did not show any obvious etiology for her a brupt worsening. 2. Acute metabolic encephalopathy in the setting of above and likely related to CO2 narcosis. She initially was presented as an inpatient stroke alert, but this seemed to be less likely etiology giv en findings as per above. 3. Status post paraesophageal hernia repair, with her postop course being complicated by worsening respiratory status. This is in the setting of underlying COPD and likely some volume overload with bilateral pleural effusions. She did have an abdominal CT that did not show any evidence of surgica l complications. 4. Code status. The patient was admitted as a full code; however after her abrupt decompensation, family was notified and when they arrived at bedside confirmed that the patient has had a longstandi ng DNR. They are very clear that she would never want to be intubated or maintained on any sort of artificial life support. Given that and following a long conversation with them, they did elect to extubate patient and not pursue further aggressive measures. She was extubated and shor tly thereafter peacefully. TIME SPENT: Greater than 35 minutes spent in discharge of this patient. More than half in face-to- face counseling of patient and her family regarding goals of care and supporting them in their grief . /[id number]/MODL
== END 2016-08-12 06:43 | disposition expired | DRG 326 ==
LOC: F3E 05:46 → F2N 08-12 04:32
PROVIDERS: ADMIT Surgery; ATTEND Surgery
DX: K44.9 Diaphragmatic hernia without obstruction or gangrene (principal); J96.01 Acute respiratory failure with hypoxia; G93.41 Metabolic encephalopathy; J44.1 Chronic obstructive pulmonary disease with (acute) exacerbation; J90 Pleural effusion, not elsewhere classified; I25.10 Atherosclerotic heart disease of native coronary artery without angina pectoris; E78.00 Pure hypercholesterolemia, unspecified; K21.9 Gastro-esophageal reflux disease without esophagitis; Z66 Do not resuscitate; Z85.528 Personal history of other malignant neoplasm of kidney; I46.9 Cardiac arrest, cause unspecified
CPT/HCPCS: 82947-QW; 97116-GP; 97161-GP; 97165-GO; 97530-GO; 97530-GP; G8978-GP-CK; G8979-GP-CI; G8987-GO-CM; G8988-GO-CJ; J0697; J1100; J1170; J1200; J1650; J2001; J2370; J2405; J2704; J3010; Q9967